=== PATIENT | female | born 1955 | race Caucasian/White ===

== ENCOUNTER 2019-06-15 16:44 | Outpatient (CLI) | payer MEDICARE | END 2019-06-15 16:45 | disposition EMS.NT | LOC: EMS 16:44 | PROVIDERS: ATTEND Surgery | DX: R55 Syncope and collapse (principal) ==

== ENCOUNTER 2019-06-15 17:50 | Outpatient (CLI) | payer MEDICARE | END 2019-06-15 17:51 | disposition short-term general hospital (02) | LOC: EMS 17:50 | PROVIDERS: ATTEND Surgery | DX: I46.9 Cardiac arrest, cause unspecified (principal) | CPT/HCPCS: A0425; A0427 ==

== ENCOUNTER 2019-07-08 13:53 | Outpatient (CLI) | payer MEDICARE | END 2019-07-08 13:54 | disposition short-term general hospital (02) | LOC: EMS 13:53 | PROVIDERS: ATTEND Surgery | DX: R42 Dizziness and giddiness (principal); I82.402 Acute embolism and thrombosis of unspecified deep veins of left lower extremity | CPT/HCPCS: A0425; A0427 ==

== ENCOUNTER 2019-07-12 14:44 | Outpatient (CLI) | payer MEDICARE, OTHER ==
--- NOTE | 2019-07-12 16:47 | XRAY Report ---
Reason: CHEST/RIB PAIN Procedure Date: 07/12/2019 Accession Number: [id number] / [id number] Procedure: XRS - Ribs 3 View BILAT CPT Code: FULL RESULT: EXAM: BILATERAL RIB RADIOGRAPHY EXAM DATE: 07/12/2019 03:17 PM. CLINICAL HISTORY: CHEST/RIB PAIN. COMPARISON: CHEST 2 VIEW 07/12/2019 3:24 PM. TECHNIQUE: 2 views. FINDINGS: Bones: There are upper chest lateral rib fractures, poorly localized on the 2 views, likely right side at least ribs 5 through 8. The CISNEROS view is also suggestive of minimally displaced fractures of at least the anterolateral third and fourth left ribs. Evaluation is limited by qualitative apparent osteopenia which may be due to technique. Lungs: No focal opacities evident. No pneumothorax or pleural effusions. Mediastinum: Heart and cardiomediastinal contours are unremarkable. Other: None. IMPRESSION: Likely bilateral rib fractures, evaluation is limited. RADIA
[2019-07-12 18:39] LABS: BASOPHILS # (AUTO) 0.1 10^3/uL (0.0-0.1); BASOPHILS % (AUTO) 1.4 %; EOSINOPHILS # (AUTO) 0.4 10^3/uL (0.0-0.7); EOSINOPHILS % (AUTO) 4.7 %; HGB - HEMOGLOBIN 11.2 g/dL (12.0-16.0); LYMPHOCYTES # (AUTO) 2.3 10^3/uL (1.5-3.5); LYMPHOCYTES % (AUTO) 28.1 %; MEAN CORPUSCULAR HEMOGLOBIN 31.9 pg (27.0-31.0); MEAN CORPUSCULAR HGB CONC 32.7 g/dL (32.0-36.0); MEAN CORPUSCULAR VOLUME 97.4 fL (81.0-99.0); MEAN PLATELET VOLUME 10.3 fL (7.9-10.8); MONOCYTES # (AUTO) 0.7 10^3/uL (0.0-1.0); NEUTROPHILS # (AUTO) 4.6 10^3/uL (1.5-6.6); NEUTROPHILS % (AUTO) 56.1 %; PLT - PLATELET COUNT 366 10^3/uL (130-450); RED BLOOD COUNT 3.51 10^6/uL (4.20-5.40); RED CELL DISTRIBUTION WIDTH 13.8 % (12.0-15.0); WHITE BLOOD COUNT 8.1 x10^3/uL (4.8-10.8)
[2019-07-12 19:00] LABS: ALBUMIN 3.5 g/dL (3.2-5.5); BILIRUBIN,TOTAL 0.7 mg/dL (0.2-1.0); CALCIUM 9.2 mg/dL (8.5-10.3); CREATININE 0.8 mg/dL (0.4-1.0); MAGNESIUM 2.1 mg/dL (1.7-2.8); TOTAL PROTEIN 6.9 g/dL (6.7-8.2)
--- NOTE | 2019-07-13 07:59 | XRAY Report ---
Reason: CHEST/RIB PAIN Procedure Date: 07/12/2019 Accession Number: [id number] / [id number] Procedure: XRS - Chest 2 View X-Ray CPT Code: 70373 FULL RESULT: EXAM: CHEST RADIOGRAPHY EXAM DATE: 07/12/2019 03:17 PM. CLINICAL HISTORY: Chest/rib pain. COMPARISON: RIBS 3 VIEW BILAT 07/12/2019 3:31 PM. TECHNIQUE: 2 views. FINDINGS: Lungs/Pleura: No focal opacities evident. No pleural effusion. No pneumothorax. Normal volumes. Mediastinum: Heart and mediastinal contours are unremarkable. Other: Bilateral oblique views of the ribs performed today suggest nondisplaced fractures of the anterior right third and fourth ribs and left anterior fifth rib.. IMPRESSION: Bilateral anterior rib fractures. No pneumothorax identified. RADIA
== END 2019-07-12 14:45 | disposition home or self-care (01) ==
LOC: DI.S 14:44
PROVIDERS: ATTEND Physician Assistant
DX: S22.43XA Multiple fractures of ribs, bilateral, initial encounter for closed fracture (principal); R07.89 Other chest pain; R05 Cough; E87.6 Hypokalemia
CPT/HCPCS: 36415; 71046; 71110; 80053; 83735; 85025

== ENCOUNTER 2019-08-06 12:22 | Outpatient (CLI) | payer MEDICARE, OTHER ==
[2019-08-06 12:49] LABS: BASOPHILS # (AUTO) 0.1 10^3/uL (0.0-0.1); BASOPHILS % (AUTO) 1.2 %; EOSINOPHILS # (AUTO) 0.2 10^3/uL (0.0-0.7); EOSINOPHILS % (AUTO) 2.2 %; HGB - HEMOGLOBIN 12.2 g/dL (12.0-16.0); LYMPHOCYTES # (AUTO) 1.5 10^3/uL (1.5-3.5); LYMPHOCYTES % (AUTO) 21.8 %; MEAN CORPUSCULAR HEMOGLOBIN 30.9 pg (27.0-31.0); MEAN CORPUSCULAR VOLUME 96.5 fL (81.0-99.0); MEAN PLATELET VOLUME 10.2 fL (7.9-10.8); MONOCYTES # (AUTO) 0.4 10^3/uL (0.0-1.0); MONOCYTES % (AUTO) 6.6 %; NEUTROPHILS # (AUTO) 4.5 10^3/uL (1.5-6.6); NEUTROPHILS % (AUTO) 67.9 %; PLT - PLATELET COUNT 344 10^3/uL (130-450); RED BLOOD COUNT 3.95 10^6/uL (4.20-5.40); RED CELL DISTRIBUTION WIDTH 13.1 % (12.0-15.0); WHITE BLOOD COUNT 6.7 x10^3/uL (4.8-10.8)
[2019-08-06 13:05] LABS: ALBUMIN 3.8 g/dL (3.2-5.5); BILIRUBIN,TOTAL 0.4 mg/dL (0.2-1.0); CALCIUM 9.1 mg/dL (8.5-10.3); CREATININE 0.6 mg/dL (0.4-1.0); MAGNESIUM 1.8 mg/dL (1.7-2.8); TOTAL PROTEIN 7.5 g/dL (6.7-8.2)
== END 2019-08-06 12:23 | disposition home or self-care (01) ==
LOC: LAB 12:22
PROVIDERS: ATTEND Physician Assistant
DX: E87.6 Hypokalemia (principal); N39.0 Urinary tract infection, site not specified; R07.89 Other chest pain; R05 Cough
CPT/HCPCS: 36415; 80053; 83735; 85025

== ENCOUNTER 2019-08-24 13:48 | Outpatient (CLI) | payer MEDICARE, OTHER ==
[2019-08-24 14:19] LABS: BASOPHILS # (AUTO) 0.1 10^3/uL (0.0-0.1); BASOPHILS % (AUTO) 1.1 %; EOSINOPHILS # (AUTO) 0.3 10^3/uL (0.0-0.7); EOSINOPHILS % (AUTO) 3.2 %; HGB - HEMOGLOBIN 12.5 g/dL (12.0-16.0); LYMPHOCYTES # (AUTO) 1.8 10^3/uL (1.5-3.5); LYMPHOCYTES % (AUTO) 22.1 %; MEAN CORPUSCULAR HGB CONC 30.9 g/dL (32.0-36.0); MEAN CORPUSCULAR VOLUME 93.7 fL (81.0-99.0); MEAN PLATELET VOLUME 10.4 fL (7.9-10.8); MONOCYTES # (AUTO) 0.6 10^3/uL (0.0-1.0); MONOCYTES % (AUTO) 7.3 %; NEUTROPHILS # (AUTO) 5.3 10^3/uL (1.5-6.6); NEUTROPHILS % (AUTO) 66.1 %; PLT - PLATELET COUNT 266 10^3/uL (130-450); RED BLOOD COUNT 4.31 10^6/uL (4.20-5.40); RED CELL DISTRIBUTION WIDTH 12.8 % (12.0-15.0); WHITE BLOOD COUNT 8.1 x10^3/uL (4.8-10.8)
[2019-08-24 14:33] LABS: ALBUMIN 3.9 g/dL (3.2-5.5); ALBUMIN/GLOBULIN RATIO 1.2 (1.0-2.2); BILIRUBIN,TOTAL 0.4 mg/dL (0.2-1.0); CREATININE 0.7 mg/dL (0.4-1.0); TOTAL PROTEIN 7.2 g/dL (6.7-8.2)
== END 2019-08-24 13:49 | disposition home or self-care (01) ==
LOC: LAB 13:48
PROVIDERS: ATTEND Physician Assistant
DX: D64.9 Anemia, unspecified (principal)
CPT/HCPCS: 36415; 80053; 85025

== ENCOUNTER 2019-09-03 10:12 | Outpatient (CLI) | payer MEDICARE, OTHER ==
[2019-09-03 10:34] LABS: BASOPHILS # (AUTO) 0.1 10^3/uL (0.0-0.1); BASOPHILS % (AUTO) 1.5 %; EOSINOPHILS # (AUTO) 0.3 10^3/uL (0.0-0.7); EOSINOPHILS % (AUTO) 4.7 %; HGB - HEMOGLOBIN 12.9 g/dL (12.0-16.0); LYMPHOCYTES # (AUTO) 2.3 10^3/uL (1.5-3.5); LYMPHOCYTES % (AUTO) 34.6 %; MEAN CORPUSCULAR HEMOGLOBIN 29.8 pg (27.0-31.0); MEAN CORPUSCULAR HGB CONC 31.9 g/dL (32.0-36.0); MEAN CORPUSCULAR VOLUME 93.5 fL (81.0-99.0); MEAN PLATELET VOLUME 10.1 fL (7.9-10.8); MONOCYTES # (AUTO) 0.5 10^3/uL (0.0-1.0); MONOCYTES % (AUTO) 7.5 %; NEUTROPHILS # (AUTO) 3.5 10^3/uL (1.5-6.6); NEUTROPHILS % (AUTO) 51.4 %; PLT - PLATELET COUNT 282 10^3/uL (130-450); RED BLOOD COUNT 4.33 10^6/uL (4.20-5.40); RED CELL DISTRIBUTION WIDTH 12.4 % (12.0-15.0); WHITE BLOOD COUNT 6.8 x10^3/uL (4.8-10.8)
[2019-09-03 11:09] LABS: ALBUMIN 4.1 g/dL (3.2-5.5); ALBUMIN/GLOBULIN RATIO 1.2 (1.0-2.2); BILIRUBIN,TOTAL 0.3 mg/dL (0.2-1.0); CALCIUM 9.1 mg/dL (8.5-10.3); CREATININE 0.7 mg/dL (0.4-1.0); TOTAL PROTEIN 7.4 g/dL (6.7-8.2)
== END 2019-09-03 10:13 | disposition home or self-care (01) ==
LOC: LAB 10:12
PROVIDERS: ATTEND Physician Assistant
DX: E87.6 Hypokalemia (principal); D64.9 Anemia, unspecified; F32.9 Major depressive disorder, single episode, unspecified; E83.42 Hypomagnesemia
CPT/HCPCS: 36415; 80053; 82306; 83735; 84443; 85025

== ENCOUNTER 2019-09-10 13:34 | Outpatient (CLI) | payer MEDICARE, OTHER ==
[2019-09-10 14:14] LABS: MAGNESIUM 2.1 mg/dL (1.7-2.8)
== END 2019-09-10 13:35 | disposition home or self-care (01) ==
LOC: LAB 13:34
PROVIDERS: ATTEND Registered Nurse
DX: E87.6 Hypokalemia (principal)
CPT/HCPCS: 36415; 83735; 84132

== ENCOUNTER 2019-09-17 15:43 | Outpatient (CLI) | payer MEDICARE, OTHER | END 2019-09-17 15:44 | disposition home or self-care (01) | LOC: LAB 15:43 | PROVIDERS: ATTEND Family Medicine | DX: E87.6 Hypokalemia (principal); R29.90 Unspecified symptoms and signs involving the nervous system; E83.42 Hypomagnesemia | CPT/HCPCS: 36415; 83735; 84132 ==

== ENCOUNTER 2019-09-21 16:17 | Outpatient (CLI) | payer MEDICARE, OTHER | END 2019-09-21 16:18 | disposition home or self-care (01) | LOC: LAB 16:17 | PROVIDERS: ATTEND Registered Nurse | DX: E87.6 Hypokalemia (principal); E83.42 Hypomagnesemia | CPT/HCPCS: 36415; 83735; 84132 ==

== ENCOUNTER 2019-09-24 16:31 | Outpatient (CLI) | payer MEDICARE, OTHER ==
[2019-09-24 17:14] LABS: MAGNESIUM 1.9 mg/dL (1.7-2.8)
== END 2019-09-24 16:32 | disposition home or self-care (01) ==
LOC: LAB 16:31
PROVIDERS: ATTEND Registered Nurse
DX: E87.6 Hypokalemia (principal); E83.42 Hypomagnesemia
CPT/HCPCS: 36415; 83735; 84132

== ENCOUNTER 2019-09-29 16:23 | Outpatient (CLI) | payer MEDICARE, OTHER ==
[2019-09-29 17:01] LABS: MAGNESIUM 1.9 mg/dL (1.7-2.8)
== END 2019-09-29 16:24 | disposition home or self-care (01) ==
LOC: LAB 16:23
PROVIDERS: ATTEND Registered Nurse
DX: E87.6 Hypokalemia (principal); E83.42 Hypomagnesemia
CPT/HCPCS: 36415; 83735; 84132

== ENCOUNTER 2019-10-11 13:56 | Outpatient (CLI) | payer MEDICARE, OTHER ==
[2019-10-11 14:39] LABS: MAGNESIUM 2.2 mg/dL (1.7-2.8)
== END 2019-10-11 13:57 | disposition home or self-care (01) ==
LOC: LAB 13:56
PROVIDERS: ATTEND Registered Nurse
DX: E87.6 Hypokalemia (principal); E83.42 Hypomagnesemia
CPT/HCPCS: 36415; 83735; 84132

== ENCOUNTER 2019-10-21 16:57 | Outpatient (CLI) | payer MEDICARE, OTHER ==
--- NOTE | 2019-10-22 08:58 | Ultrasound Report ---
Reason: LT DVT Procedure Date: 10/21/2019 Accession Number: [id number] / [id number] Procedure: US - Duplex Ext Veins Left CPT Code: Final Report FULL RESULT: EXAM: LEFT LOWER EXTREMITY VENOUS ULTRASOUND EXAM DATE: 10/21/2019 05:35 PM. CLINICAL HISTORY: LT DVT. COMPARISON: VAS LOWER EXTREMITY VENOUS LEFT 06/23/2019 11:34 AM VAS LOWER EXTREMITY VENOUS LEFT 06/23/2019 10:49 AM. TECHNIQUE: Real-time sonographic vascular imaging was performed by the lead material handler through the lower extremity utilizing both color-flow and Doppler spectral analysis. Multiple personal service representative static images were saved for review. FINDINGS: Common Femoral Vein (CFV): Normal. CFV-GSV Junction: Normal. Profunda Femoral Vein (PFV): Normal. Femoral Vein (FV) Prox: Normal. Femoral Vein (FV) Mid: Normal. Femoral Vein (FV) Dist: Normal. Popliteal Vein: Normal. Posterior Tibial Veins: Normal. Peroneal Veins: Normal. Contralateral Side CFV: Normal. Other: None. IMPRESSION: No evidence for deep venous thrombosis. 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 RADIA
== END 2019-10-21 16:58 | disposition home or self-care (01) ==
LOC: DI 16:57
PROVIDERS: ATTEND Registered Nurse
DX: I82.409 Acute embolism and thrombosis of unspecified deep veins of unspecified lower extremity (principal); E83.42 Hypomagnesemia; E87.6 Hypokalemia
CPT/HCPCS: 36415; 83735; 84132

== ENCOUNTER 2019-10-21 17:41 | Outpatient (CLI) | payer MEDICARE, OTHER ==
[2019-10-21 18:04] LABS: MAGNESIUM 1.9 mg/dL (1.7-2.8)
== END 2019-10-21 17:42 | disposition home or self-care (01) ==
LOC: LAB 17:41
PROVIDERS: ATTEND Physician Assistant Medical
DX: E83.42 Hypomagnesemia (principal); E87.6 Hypokalemia
CPT/HCPCS: 36415; 83735; 84132

== ENCOUNTER 2020-05-18 15:02 | Outpatient (CLI) | payer MEDICARE, OTHER ==
[2020-05-18 15:39] LABS: ALBUMIN 4.5 g/dL (3.2-5.5); CALCIUM 9.6 mg/dL (8.5-10.3); CREATININE 0.8 mg/dL (0.4-1.0); PHOSPHORUS 3.3 mg/dL (2.5-4.6)
== END 2020-05-18 15:03 | disposition home or self-care (01) ==
LOC: LAB 15:02
PROVIDERS: ATTEND Internal Medicine Nephrology
DX: E87.6 Hypokalemia (principal)
CPT/HCPCS: 36415; 80069; 83735

== ENCOUNTER 2020-07-25 13:50 | Outpatient (CLI) | payer MEDICARE, OTHER ==
[2020-07-25 20:34] LABS: ALBUMIN 4.3 g/dL (3.2-5.5); CALCIUM 9.3 mg/dL (8.5-10.3); CREATININE 0.9 mg/dL (0.4-1.0); MAGNESIUM 1.9 mg/dL (1.7-2.8); PHOSPHORUS 3.3 mg/dL (2.5-4.6)
== END 2020-07-25 13:51 | disposition home or self-care (01) ==
LOC: LAB.S 13:50
PROVIDERS: ATTEND Internal Medicine Nephrology
DX: E87.6 Hypokalemia (principal)
CPT/HCPCS: 36415; 80069; 83735

== ENCOUNTER 2021-01-20 13:24 | Outpatient (CLI) | payer MEDICARE, OTHER ==
--- NOTE | 2021-01-20 14:18 | XRAY Report ---
PROCEDURE: Knee 3 View LT INDICATIONS: PAIN IN LEFT KNEE TECHNIQUE: 3 views of the left knee(s) were acquired. COMPARISON: None. FINDINGS: Bones: No fractures or dislocations. No suspicious bony lesions. Soft tissues: Small knee joint effusion. No suspicious soft tissue calcifications. IMPRESSION: No acute bony abnormality. Small knee joint effusion. Reviewed by: Marck Corey on 01/20/2021 1:16 PM [facility] Approved by: Marck Corey on 01/20/2021 1:16 PM [facility] Station ID: [id number]
[2021-01-20 17:59] LABS: CALCIUM 9.7 mg/dL (8.5-10.3); CREATININE 0.9 mg/dL (0.4-1.0); POTASSIUM 4.2 mmol/L (3.5-5.0)
== END 2021-01-20 13:25 | disposition home or self-care (01) ==
LOC: DI.S 13:24
PROVIDERS: ATTEND Registered Nurse
DX: M25.562 Pain in left knee (principal); M25.462 Effusion, left knee; E87.6 Hypokalemia
CPT/HCPCS: 36415; 80048

== ENCOUNTER 2021-10-25 14:02 | Outpatient (CLI) | payer MEDICARE, OTHER | END 2021-10-25 14:03 | disposition critical access hospital (66) | LOC: EMS 14:02 | DX: R41.82 Altered mental status, unspecified (principal) | CPT/HCPCS: A0425; A0429 ==

== ENCOUNTER 2021-10-25 14:21 | Emergency (ER) | payer MEDICARE, OTHER ==
[2021-10-25] MEDS ORDERED: THIAMINE INJ 100 MG, MAGNESIUM SULFATE 2 GM, MULTIVITAMIN 10 ML, FOLIC ACID INJ 1 MG in... IV ONE ×5 (14:28)
[2021-10-25 14:41] LABS: BASOPHILS # (AUTO) 0.1 10^3/uL (0.0-0.1); BASOPHILS % (AUTO) 1.2 %; EOSINOPHILS # (AUTO) 0.2 10^3/uL (0.0-0.7); EOSINOPHILS % (AUTO) 1.9 %; HCT - HEMATOCRIT 45.7 % (37.0-47.0); LYMPHOCYTES # (AUTO) 3.1 10^3/uL (1.5-3.5); LYMPHOCYTES % (AUTO) 32.3 %; MEAN CORPUSCULAR HEMOGLOBIN 27.4 pg (27.0-31.0); MEAN CORPUSCULAR HGB CONC 32.8 g/dL (32.0-36.0); MEAN CORPUSCULAR VOLUME 83.5 fL (81.0-99.0); MEAN PLATELET VOLUME 9.4 fL (7.9-10.8); MONOCYTES # (AUTO) 0.5 10^3/uL (0.0-1.0); MONOCYTES % (AUTO) 5.3 %; NEUTROPHILS # (AUTO) 5.6 10^3/uL (1.5-6.6); NEUTROPHILS % (AUTO) 58.9 %; PLT - PLATELET COUNT 241 10^3/uL (130-450); RED BLOOD COUNT 5.47 10^6/uL (4.20-5.40); RED CELL DISTRIBUTION WIDTH 14.9 % (12.0-15.0); WHITE BLOOD COUNT 9.6 x10^3/uL (4.8-10.8)
--- NOTE | 2021-10-25 14:42 | ED Physician Documentation ---
History of Present Illness - Stated complaint Stated Complaint: AMS/ETOH - Chief complaint Chief Complaint: General - History obtained from History obtained from: Patient, EMS - History of Present Illness Timing: Today Pain level max: 0 Pain level now: 0 - Additonal information Additional information: Patient is a 66-year-old female brought in by ambulance today. EMS states that she lives in [place], but for some reason is staying at a hotel up in [place]. EMS reports that her daughter is in correction but has been reporting that her mother has been binge drinking more than usual. Patient has a longstanding history of alcoholism. No known trauma. Nothing makes it better or worse. EMS states that the patient was confused at home. Slow to respond to questioning. Has a prosthetic left eye. Patient does not know why she has a prosthetic left eye. Patient does not know any of her medical history. She does not know if she takes any medications or not. 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 - Present Medications Home Medications: Ambulatory Orders Medication Instructions Recorded Confirmed Alprazolam [Alprazolam Odt] 0.5 mg PO 10/21/13 10/21/13 oxyCODONE [Roxicodone] 5 mg PO Q4-6H PRN #14 tablet 10/21/13 HYDROcod/ACETAM 5/325 [Vicodin 1 - 2 ea PO Q6H PRN 10/26/13 10/26/13 5/325] Morphine Sulfate [Ms Contin] 60 mg PO 10/26/13 10/26/13 - Allergies Allergies/Adverse Reactions: Allergies Allergy/AdvReac Type Severity Reaction Status Date / Time No Known Drug Allergies Allergy Verified 11/04/15 19:31 - Social History Does the pt smoke?: No Smoking Status: Never smoker Does the pt drink ETOH?: Yes Does the pt have substance abuse?: No - Immunizations Immunizations are current?: Yes PD ED PE NORMAL - Vitals Vital signs reviewed: Yes - General General: No acute distress, Other (alert, oriented to person, place, but not to time. appears intoxicated. ) - HEENT HEENT: Atraumatic, Ears normal, Moist mucous membranes, Pharynx benign, Other (prosthetic L eye) - Neck Neck: Supple, no meningeal sign, No bony TTP - Cardiac Cardiac: RRR, Strong equal pulses - Respiratory Respiratory: No respiratory distress, Clear bilaterally - Abdomen Abdomen: Soft, Non tender, Non distended - Derm Derm: Warm and dry - Extremities Extremities: No edema - Neuro Neuro: Alert and oriented X 3 Results - Vitals Vitals: Vital Signs - 24 hr 10/25/21 10/25/21 14:22 19:50 Temperature 36.2 C L 36.9 C Heart Rate 83 87 Respiratory 18 16 Rate Blood Pressure 138/86 H 144/75 H O2 Saturation 98 96 Oxygen O2 Source Room air - EKG (time done) 1432 Rate: Rate (enter#) (82) Rhythm: NSR [place]: Normal Intervals: Normal DC QRS: LVH Ischemia: Normal ST segments - Labs Labs: Laboratory Tests 10/25/21 10/25/21 10/25/21 14:35 14:35 14:35 WBC 9.6 RBC 5.47 H Hgb 15.0 Hct 45.7 MCV 83.5 MCH 27.4 MCHC 32.8 RDW 14.9 Plt Count 241 MPV 9.4 Neut # (Auto) 5.6 Lymph # (Auto) 3.1 Rice # (Auto) 0.5 Eos # (Auto) 0.2 Baso # (Auto) 0.1 Absolute Nucleated RBC 0.00 Nucleated RBC % 0.0 Sodium 137 Potassium 4.4 Chloride 100 L Carbon Dioxide 26 Anion Gap 11.0 BUN 20 Creatinine 0.7 Estimated GFR (MDRD) 83 L Glucose 89 Calcium 9.0 Total Bilirubin 1.0 AST 117 H ALT 32 Alkaline Phosphatase 94 Total Protein 8.2 Albumin 4.5 Globulin 3.7 Albumin/Globulin Ratio 1.2 Lipase 27 TSH 1.06 Urine Color Urine Clarity Urine pH Ur Specific [place] Urine Protein Urine Glucose (UA) Urine Ketones Urine Occult Blood Urine Nitrite Urine Bilirubin Urine Urobilinogen Ur Leukocyte Esterase Ur Microscopic Review Urine Culture Comments Salicylates < 6.0 Urine Opiates Screen Ur Oxycodone Screen Urine Methadone Screen Ur Propoxyphene Screen Acetaminophen < 10 L Ur Barbiturates Screen Ur Tricyclics Screen Ur Phencyclidine Scrn Ur Amphetamine Screen U Methamphetamines Scrn U Benzodiazepines Scrn Urine Cocaine Screen U Cannabinoids Screen Ethyl Alcohol 254.4 10/25/21 14:43 WBC RBC Hgb Hct MCV MCH MCHC RDW Plt Count MPV Neut # (Auto) Lymph # (Auto) Rice # (Auto) Eos # (Auto) Baso # (Auto) Absolute Nucleated RBC Nucleated RBC % Sodium Potassium Chloride Carbon Dioxide Anion Gap BUN Creatinine Estimated GFR (MDRD) Glucose Calcium Total Bilirubin AST ALT Alkaline Phosphatase Total Protein Albumin Globulin Albumin/Globulin Ratio Lipase TSH Urine Color STRAW Urine Clarity CLEAR Urine pH 5.5 Ur Specific [place] 1.010 Urine Protein NEGATIVE Urine Glucose (UA) NEGATIVE Urine Ketones NEGATIVE Urine Occult Blood TRACE-INTA Urine Nitrite NEGATIVE Urine Bilirubin NEGATIVE Urine Urobilinogen 0.2 (NORMAL) Ur Leukocyte Esterase NEGATIVE Ur Microscopic Review NOT INDICATED Urine Culture Comments NOT INDICATED Salicylates Urine Opiates Screen NEGATIVE Ur Oxycodone Screen POSITIVE H Urine Methadone Screen NEGATIVE Ur Propoxyphene Screen NEGATIVE Acetaminophen Ur Barbiturates Screen NEGATIVE Ur Tricyclics Screen NEGATIVE Ur Phencyclidine Scrn NEGATIVE Ur Amphetamine Screen NEGATIVE U Methamphetamines Scrn NEGATIVE U Benzodiazepines Scrn NEGATIVE Urine Cocaine Screen NEGATIVE U Cannabinoids Screen NEGATIVE Ethyl Alcohol - Rads (name of study) Head CT Radiology: Final report received, EMP read contemporaneously, See rad report (No acute intracranial abnormality) PD MEDICAL DECISION MAKING - ED course Complexity details: reviewed results, re-evaluated patient, considered differential, d/w patient ED course: 66-year-old female presents to the emergency department with alcohol intoxication and oxycodone abuse. This is an ongoing issue for the patient. She refuses detox or rehab. She eventually cleared to her normal mentation as the alcohol and opiates cleared from her system. is comfortable taking her home at this time. Patient and family counseled regarding signs and symptoms for which I believe and urgent re-evaluation would be necessary. Patient with good understanding of and agreement to plan and is comfortable going home at this time This document was made in part using voice recognition software. While efforts are made to proofread this document, sound alike and grammatical errors may occur. Departure - Departure Disposition: 01 Home, Self Care Clinical Impression: Opiate abuse, episodic Alcohol intoxication Qualifiers: Complication of substance-induced condition: uncomplicated Qualified Code(s): F10.920 - Alcohol use, unspecified with intoxication, uncomplicated Condition: Good Instructions: ED Alcohol Intoxication, ED Narcotic Abuse Follow-Up: Rosa M Cabrera ARNP [Primary Care Provider] - Within 1 week Comments: Please follow-up with your doctor for further care. You need to stop using alcohol and narcotics. Return if you worsen Discharge Date/Time: 10/25/21 19:55
[2021-10-25 14:49] LABS: MUDS CUTOFF CONCENTRATIONS CUTOFF CONC BELOW:
[2021-10-25 14:57] LABS: ACETAMINOPHEN < 10 ug/mL (10-30); ALBUMIN 4.5 g/dL (3.2-5.5); ALBUMIN/GLOBULIN RATIO 1.2 (1.0-2.2); ALKALINE PHOSPHATASE 94 IU/L (42-121); ALT ALANINE AMINOTRANSFERASE 32 IU/L (10-60); AST ASPARTATE AMINOTRANSFERASE 117 IU/L (10-42); BUN - BLOOD UREA NITROGEN 20 mg/dL (6-20); CARBON DIOXIDE - CO2 26 mmol/L (21-32); CHLORIDE 100 mmol/L (101-111); CREATININE 0.7 mg/dL (0.4-1.0); ETOH - ETHANOL 254.4 mg/dL; GFR - MDRD 83 (>89); GLUCOSE 89 mg/dL (70-100); LIPASE 27 U/L (22-51); POTASSIUM 4.4 mmol/L (3.5-5.0); SALICYLATE < 6.0 mg/dL; SODIUM 137 mmol/L (135-145); TOTAL PROTEIN 8.2 g/dL (6.7-8.2)
[2021-10-25 14:58] LABS: BILIRUBIN,URINE NEGATIVE (NEGATIVE); GLUCOSE, URINE (UA) NEGATIVE (NEGATIVE); KETONES,URINE (UA) NEGATIVE (NEGATIVE); LEUKOCYTE ESTERASE, URINE NEGATIVE (NEGATIVE); NITRITE,URINE NEGATIVE (NEGATIVE); OCCULT BLOOD,URINE TRACE-INTA (NEGATIVE); PH,URINE 5.5 PH (5.0-7.5); PROTEIN,URINE NEGATIVE (NEGATIVE); UROBILINOGEN,URINE 0.2 (NORMAL) E.U./dL (NORMAL)
[2021-10-25 15:00] LABS: CLARITY,URINE CLEAR (CLEAR)
[2021-10-25 15:15] LABS: AMPHETAMINE SCREEN,URINE NEGATIVE (NEGATIVE); BARBITURATE SCREEN,UR NEGATIVE (NEGATIVE); BENZODIAZEPINES SCREEN, URINE NEGATIVE (NEGATIVE); COCAINE SCREEN URINE NEGATIVE (NEGATIVE); METHADONE SCREEN, URINE NEGATIVE (NEGATIVE); METHAMPHETAMINES SCREEN, URINE NEGATIVE (NEGATIVE); OPIATE SCREEN, URINE NEGATIVE (NEGATIVE); OXYCODONE SCREEN, URINE POSITIVE (NEGATIVE); PROPOXYPHENE SCREEN, URINE NEGATIVE (NEGATIVE); THC CANNABINOID SCREEN, URINE NEGATIVE (NEGATIVE); TRICYCLIC ANTIDEPRESSANT,URINE NEGATIVE (NEGATIVE)
--- NOTE | 2021-10-25 15:45 | CT Report ---
PROCEDURE: HEAD WO INDICATIONS: altered mental status TECHNIQUE: Noncontrast 4.5 mm thick angled axial sections acquired from the foramen magnum to the vertex. For r adiation dose reduction, the following was used: automated exposure control, adjustment of mA and/or kV according to patient size. COMPARISON: None. FINDINGS: Image quality: Excellent. CSF spaces: Basal cisterns are patent. No extra-axial fluid collections. Ventricles are normal in size and shape. Brain: No midline shift. No intracranial masses or hemorrhage. Reich-white matter interface is norm al. Skull and face: Calvarium and visualized facial bones are intact, without suspicious lesions. Left prosthetic versus calcified globe. Sinuses: Visualized sinuses and mastoids are clear. IMPRESSION: 1. No acute intracranial process. Reviewed by: Anastasia De La Vega MD on 10/25/2021 3:44 PM PST Approved by: Anastasia De La Vega MD on 10/25/2021 3:44 PM PST Station ID: [id number]
[2021-10-25 20:00] VITALS: BP 144/75
== END 2021-10-25 19:55 | disposition home or self-care (01) ==
LOC: EDUNIT# → ED 14:21
DX: F11.10 Opioid abuse, uncomplicated (principal); I10 Essential (primary) hypertension
CPT/HCPCS: 36415; 70450; 80053; 80306; 80307; 81003; 83690; 84443; 85025; 93005; 96365; 96366; 99283; 99284; G0480; J3411; 80320; 80329; 81001; 87086

== ENCOUNTER 2022-08-28 12:27 | Outpatient (CLI) | payer MEDICARE, OTHER ==
--- NOTE | 2022-08-28 14:33 | XRAY Report ---
PROCEDURE: Lumbar Spine 2 View INDICATIONS: Low back pain TECHNIQUE: 3 views of the lumbar spine were acquired. COMPARISON: None. FINDINGS: Vertebra plana wedge compression deformity at L1 which is presumably remote although an acute compone nt cannot be excluded. Acute or subacute wedge compression deformity at L4 with approximately 10% height loss. No suspicious lytic or blastic osseous lesion identified. Moderate to severe degenerative changes in the lower lumbar spine. IMPRESSION: Acute appearing L4 compression fracture. Vertebral plana at L1 which is favored to be remote given the advanced height loss, although an acute component cannot be excluded. Please note exam limited by body habitus. Consider CT for further evaluation. Reviewed by: Matteo Mendes MD on 08/28/2022 2:32 PM PST Approved by: Matteo Mendes MD on 08/28/2022 2:32 PM PST Station ID: [id number]
--- NOTE | 2022-08-28 14:35 | XRAY Report ---
PROCEDURE: Thoracic Spine 2 View INDICATIONS: LOW BACK PAIN TECHNIQUE: 2 views of the thoracic spine were acquired. COMPARISON: None. FINDINGS: Age-indeterminate T9 anterior wedge compression deformity. Vertebral plana at L1 is redemonstrated. O therwise normal vertebral body height and alignment. No suspicious lytic or blastic osseous lesion. IMPRESSION: Age indeterminate T9 anterior wedge compression deformity, moderate in severity. Correlate for any po int tenderness to assess for acuity. Vertebral plana at L1 is presumably chronic although acute component will need clinical exclusion. Reviewed by: Matteo Mendes MD on 08/28/2022 2:34 PM PST Approved by: Matteo Mendes MD on 08/28/2022 2:34 PM PST Station ID: [id number]
== END 2022-08-28 12:28 | disposition home or self-care (01) ==
LOC: DI.S 12:27
PROVIDERS: ATTEND Registered Nurse
DX: S32.040A Wedge compression fracture of fourth lumbar vertebra, initial encounter for closed fracture (principal); S22.070A Wedge compression fracture of T9-T10 vertebra, initial encounter for closed fracture

== ENCOUNTER 2022-08-31 14:18 | Emergency (ER) | payer MEDICARE, OTHER ==
--- OUTSIDE RECORDS SUMMARY | 2022-08-31 14:28 | EXTERNAL MEDICAL SUMMARY RPT | Continuity of Care Document ---
:1955 Author Organization [facility] Address [address] [place] [address] Phone Allergies No information. Encounters No information. Functional Status No information. Immunizations No information. Medications No information. Problems No information. Procedures date description facility +0000 Visit Code [facility] [place] Results/Labs No information. Social History No information. Vital Signs date measurement value units [id number] BP_diastolic BP_diastolic 87 mm[H g] [id number]+0000 BP_systolic BP_systolic 162 mm[Hg] 97116523912410+0000 heart_rate heart_rate 131 /min [id number]+0000 height_metric height_metric 153.67 cm [id number]+0000 height_standard height_standard 60.5 in [id number]+0000 respiration_rate respiration_rate 16 /min [id number]+0000 temperature_metric temperature_metric 36.44 C [id number]+0000 temperature_standard temperature_standard 9 7.6 F
[2022-08-31 14:33] VITALS: BP 176/92
[2022-08-31] MEDS ORDERED: KETOROLAC 60 MG/2 ML VIAL IM STA (14:53)
--- NOTE | 2022-08-31 14:59 | ED Physician Documentation ---
PD HPI BACK PAIN - Stated complaint Stated Complaint: BACK PX - Chief complaint Chief Complaint: Back Pain - History obtained from History obtained from: Patient - Additional information Additional information: She had a slip and fall at night about a week ago, she injured her back with severe pain. Was subsequently seen in the clinic and had x-rays done 3 days ago demonstrating a T9 compression fracture and a L4 compression fracture. Her primary care physician would not prescribe pain medication with the exception of calcitonin due to a history of alcoholism. She is here for pain management. 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 - Present Medications Home Medications: Ambulatory Orders Medication Instructions Recorded Confirmed Alprazolam [Alprazolam Odt] 0.5 mg PO 10/21/13 10/21/13 oxyCODONE [Roxicodone] 5 mg PO Q4-6H PRN #14 tablet 10/21/13 HYDROcod/ACETAM 5/325 [Vicodin 1 - 2 ea PO Q6H PRN 10/26/13 10/26/13 5/325] Morphine Sulfate [Ms Contin] 60 mg PO 10/26/13 10/26/13 Lidocaine Patch 5% [Lidoderm Patch] 1 patch TOP DAILY PRN #14 patch 08/31/22 Oxycodone HCl 10 mg PO Q6H PRN #20 tablet 08/31/22 - Allergies Allergies/Adverse Reactions: Allergies Allergy/AdvReac Type Severity Reaction Status Date / Time No Known Drug Allergies Allergy Verified 11/04/15 19:31 - Social History Does the pt smoke?: No Smoking Status: Never smoker Does the pt drink ETOH?: Yes Does the pt have substance abuse?: No - Immunizations Immunizations are current?: Yes - POLST Patient has POLST: No PD ED PE NORMAL - Vitals Vital signs reviewed: Yes - General General: Alert and oriented X 3, No acute distress - HEENT HEENT: Other (Her left eye is a prosthetic, right eye extraocular movements are normal without nystagmus) - Back Back: Other (Tenderness in the low thoracic and lower lumbar spine) - Derm Derm: Normal color, Warm and dry - Extremities Extremities: Other (The patient has equal and normal Achilles and patellar reflexes bilaterally. Normal sensation in all areas of the legs. Patient denies saddle anesthesia. Normal strength in flexion-extension at the ankles, knees, and flexion of the hips.) - Neuro Neuro: Alert and oriented X 3, Normal speech Results - Vitals Vitals: Vital Signs - 24 hr 08/31/22 14:30 Temperature 37.0 C Heart Rate 104 H Respiratory 18 Rate Blood Pressure 176/92 H O2 Saturation 100 Oxygen O2 Source Room air PD MEDICAL DECISION MAKING - ED course ED course: 67-year-old woman with known compression fractures that are recent of the thoracic and lumbar spine presents for pain management and inadequate pain relief at home. This is complicated by history of alcoholism. Given the circumstances, with the patient's permission, I enlisted the daughter who I spoke with by phone who is willing to fruit or nut picker the medications and hold them and monitor for alcohol use. Given the above, the patient is also given a Narcan prepack to go home with. She is given 60 mg of IM Toradol here. Departure - Departure Disposition: Home, Self Care Clinical Impression: Lumbar compression fracture Qualifiers: Encounter type: initial encounter Lumbar vertebra fracture level: unspecified lumbar vertebra Qualified Code(s): S32.000A - Wedge compression fracture of unspecified lumbar vertebra, initial encounter for closed fracture Thoracic compression fracture Qualifiers: Encounter type: initial encounter Thoracic vertebra fracture level: unspecified thoracic vertebra Qualified Code(s): S22.000A - Wedge compression fracture of unspecified thoracic vertebra, initial encounter for closed fracture Condition: Good Record reviewed to determine appropriate education?: Yes Instructions: ED Fx Comp Vertebral Prescriptions: Lidocaine Patch 5% [Lidoderm Patch] 1 patch TOP DAILY PRN #14 patch PRN Reason: pain Oxycodone HCl 10 mg PO Q6H PRN #20 tablet PRN Reason: Pain Comments: I sent your prescription electronically to [facility] in [place]. I spoke with your daughter who will fruit or nut picker the medications and monitor you a bit to make sure that you are not using them with alcohol. Call your doctor to arrange a follow-up appointment, make the next available appointment. In the interim, return anytime if worse or if new symptoms develop. I am prescribing a short course of narcotic pain medication for you. These are potentially dangerous and addictive medications that should be used carefully. These medications may constipate you. Take an rdcg-ghj-fcaqidq stool softener (docusate) twice daily with plenty of water while taking these medications. If you go 24 hours without a bowel movement, take sina-bnu-swogorv miralax, per package instructions. Do not drink or drive while taking these medications. If you received narcotic or sedating medications while in the emergency department, do not drive for 24 hours. Store this medication in a safe, secure place and out of reach of children. It is a violation of federal law to give or sell this medication to another person or to use in a manner other than prescribed. The ED will not refill narcotic prescriptions, including prescriptions lost or stolen. To dispose of unwanted medications: 1. [facility] at [address] in [place] has a medication drop box. They accept prescription medications (in pill form) Friday through Friday 9:00 a.m. to 5:00 p.m. 2. [facility] [employer] accepts prescription medications (in pill form only) for disposal year round. Call for more information. 3. Contact the [facility] for the next [facility] sponsored prescription drug collection event. , [phone], or [phone]; Note that many narcotic pain relievers also contain Tylenol/acetaminophen. Please ensure that your total dose of acetaminophen from all sources does not exceed 3 g (3000 mg) per day.
[2022-08-31] MEDS ORDERED: NALOXONE HCL NASAL SPRAY KIT NAS STA (15:03)
== END 2022-08-31 15:38 | disposition home or self-care (01) ==
LOC: ED 14:18
DX: S32.040A Wedge compression fracture of fourth lumbar vertebra, initial encounter for closed fracture (principal); S22.070A Wedge compression fracture of T9-T10 vertebra, initial encounter for closed fracture; W19.XXXA Unspecified fall, initial encounter; F10.20 Alcohol dependence, uncomplicated
CPT/HCPCS: 96372; 99282; 99283; G2215

== ENCOUNTER 2022-12-16 14:45 | Outpatient (CLI) | payer MEDICARE, OTHER | END 2022-12-16 14:46 | disposition critical access hospital (66) | LOC: EMS 14:45 | DX: R41.0 Disorientation, unspecified (principal); H55.00 Unspecified nystagmus; Z72.89 Other problems related to lifestyle | CPT/HCPCS: A0425; A0429 ==

== ENCOUNTER 2022-12-16 15:14 | Emergency (ER) | payer MEDICARE, OTHER ==
[2022-12-16 15:55] LABS: BASOPHILS # (AUTO) 0.1 10^3/uL (0.0-0.1); BASOPHILS % (AUTO) 1.3 %; EOSINOPHILS # (AUTO) 0.2 10^3/uL (0.0-0.7); EOSINOPHILS % (AUTO) 2.7 %; HCT - HEMATOCRIT 42.7 % (37.0-47.0); HGB - HEMOGLOBIN 13.4 g/dL (12.0-16.0); LYMPHOCYTES # (AUTO) 2.5 10^3/uL (1.5-3.5); LYMPHOCYTES % (AUTO) 40.4 %; MEAN CORPUSCULAR HEMOGLOBIN 26.6 pg (27.0-31.0); MEAN CORPUSCULAR HGB CONC 31.4 g/dL (32.0-36.0); MEAN CORPUSCULAR VOLUME 84.9 fL (81.0-99.0); MEAN PLATELET VOLUME 9.4 fL (7.9-10.8); MONOCYTES # (AUTO) 0.3 10^3/uL (0.0-1.0); NEUTROPHILS # (AUTO) 3.2 10^3/uL (1.5-6.6); NEUTROPHILS % (AUTO) 50.3 %; PLT - PLATELET COUNT 225 10^3/uL (130-450); RED BLOOD COUNT 5.03 10^6/uL (4.20-5.40); WHITE BLOOD COUNT 6.3 x10^3/uL (4.8-10.8)
[2022-12-16 16:06] LABS: ACETAMINOPHEN < 10 ug/mL (10-30); ALBUMIN 3.9 g/dL (3.2-5.5); ALBUMIN/GLOBULIN RATIO 1.3 (1.0-2.2); ALKALINE PHOSPHATASE 81 IU/L (42-121); ALT ALANINE AMINOTRANSFERASE 19 IU/L (10-60); AST ASPARTATE AMINOTRANSFERASE 22 IU/L (10-42); BILIRUBIN,TOTAL 0.3 mg/dL (0.2-1.0); BUN - BLOOD UREA NITROGEN 10 mg/dL (6-20); CALCIUM 8.9 mg/dL (8.5-10.3); CARBON DIOXIDE - CO2 25 mmol/L (21-32); CHLORIDE 105 mmol/L (101-111); CREATININE 0.8 mg/dL (0.4-1.0); ETOH - ETHANOL 146.4 mg/dL; GFR - MDRD 71 (>89); GLUCOSE 100 mg/dL (70-100); LIPASE 42 U/L (22-51); POTASSIUM 4.5 mmol/L (3.5-5.0); SALICYLATE < 6.0 mg/dL; SODIUM 138 mmol/L (135-145)
[2022-12-16 16:33] LABS: MUDS CUTOFF CONCENTRATIONS CUTOFF CONC BELOW:
[2022-12-16 16:47] LABS: BILIRUBIN,URINE NEGATIVE (NEGATIVE); GLUCOSE, URINE (UA) NEGATIVE (NEGATIVE); KETONES,URINE (UA) NEGATIVE (NEGATIVE); LEUKOCYTE ESTERASE, URINE NEGATIVE (NEGATIVE); NITRITE,URINE NEGATIVE (NEGATIVE); OCCULT BLOOD,URINE TRACE-INTA (NEGATIVE); PH,URINE 5.5 PH (5.0-7.5); PROTEIN,URINE NEGATIVE (NEGATIVE); UROBILINOGEN,URINE 0.2 (NORMAL) E.U./dL (NORMAL)
[2022-12-16 16:49] LABS: CLARITY,URINE CLEAR (CLEAR)
[2022-12-16 16:58] LABS: THC CANNABINOID SCREEN, URINE NEGATIVE (NEGATIVE)
[2022-12-16 16:59] LABS: AMPHETAMINE SCREEN,URINE NEGATIVE (NEGATIVE); BARBITURATE SCREEN,UR NEGATIVE (NEGATIVE); BENZODIAZEPINES SCREEN, URINE NEGATIVE (NEGATIVE); COCAINE SCREEN URINE NEGATIVE (NEGATIVE); METHADONE SCREEN, URINE NEGATIVE (NEGATIVE); METHAMPHETAMINES SCREEN, URINE NEGATIVE (NEGATIVE); OPIATE SCREEN, URINE NEGATIVE (NEGATIVE); OXYCODONE SCREEN, URINE POSITIVE (NEGATIVE); PROPOXYPHENE SCREEN, URINE NEGATIVE (NEGATIVE); TRICYCLIC ANTIDEPRESSANT,URINE NEGATIVE (NEGATIVE)
--- NOTE | 2022-12-16 17:14 | CT Report ---
PROCEDURE: HEAD WO INDICATIONS: ETOH/?head injury TECHNIQUE: Noncontrast 4.5 mm thick angled axial sections acquired from the foramen magnum to the vertex. For r adiation dose reduction, the following was used: automated exposure control, adjustment of mA and/or kV according to patient size. COMPARISON: 10/25/2021 FINDINGS: Image quality: Excellent. CSF spaces: Basal cisterns are patent. No extra-axial fluid collections. Ventricles are normal in size and shape. Brain: No midline shift. No intracranial masses or hemorrhage. Reich-white matter interface is norm al. Skull and face: Calvarium and visualized facial bones are intact, without suspicious lesions. There is an abnormal left globe, with an apparent prosthesis present. Sinuses: Visualized sinuses and mastoids are clear. IMPRESSION: No intracranial hemorrhage is seen. No significant intracranial abnormality is seen. 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 Reviewed by: Avila Dickson MD on 12/16/2022 4:12 PM [facility] Approved by: Avila Dickson MD on 12/16/2022 4:12 PM [facility] Station ID: [id number]
--- NOTE | 2022-12-16 17:28 | ED Physician Documentation ---
History of Present Illness - Stated complaint Stated Complaint: ALOC/ETOH - Chief complaint Chief Complaint: Neuro - History obtained from History obtained from: Patient, EMS - Additonal information Additional information: Patient is a 67-year-old female presenting for evaluation of alcohol intoxication. Patient reports having 3 shots today. EMS reports that family members called because they were concerned when she was nonresponsive for a brief period of time. They found her in the bathroom leaning over the kitchen sink and she was not responding to them. Patient states that because she was ignoring them. She denies recent falls or hitting her head.She states that she has been medicating herself with alcohol due to chronic back pain. When she takes her pain medication she feels okay but when she does not have it she drinks. She denies feeling suicidal or homicidal.She does not currently feel that she needs help for her alcohol or substance abuse. Review of Systems Constitutional: denies: Fever Cardiac: denies: Chest pain / pressure Respiratory: denies: Dyspnea GI: denies: Abdominal Pain : denies: Dysuria Musculoskeletal: reports: Back pain Neurologic: denies: Headache PD PAST MEDICAL HISTORY - Past Medical History Cardiovascular: Hypertension Respiratory: Asthma Endocrine/Autoimmune: None GI: None COMPLEX DIRECTOR: None : None HEENT: Other Psych: Anxiety Musculoskeletal: None Derm: None - Past Surgical History Past Surgical History: Yes General: Colonoscopy /COMPLEX DIRECTOR: section - Present Medications Home Medications: Ambulatory Orders Medication Instructions Recorded Confirmed Alprazolam [Alprazolam Odt] 0.5 mg PO 10/21/13 10/21/13 oxyCODONE [Roxicodone] 5 mg PO Q4-6H PRN #14 tablet 10/21/13 HYDROcod/ACETAM 5/325 [Vicodin 1 - 2 ea PO Q6H PRN 10/26/13 10/26/13 5/325] Morphine Sulfate [Ms Contin] 60 mg PO 10/26/13 10/26/13 Lidocaine Patch 5% [Lidoderm Patch] 1 patch TOP DAILY PRN #14 patch 08/31/22 Oxycodone HCl 10 mg PO Q6H PRN #20 tablet 08/31/22 - Allergies Allergies/Adverse Reactions: Allergies Allergy/AdvReac Type Severity Reaction Status Date / Time No Known Drug Allergies Allergy Verified 11/04/15 19:31 - Social History Does the pt smoke?: No Smoking Status: Never smoker Does the pt drink ETOH?: Yes Does the pt have substance abuse?: No - Immunizations Immunizations are current?: Yes - POLST Patient has POLST: No PD ED PE NORMAL - General General: Alert and oriented X 3, No acute distress, Well developed/nourished - HEENT HEENT: Atraumatic, Other (Prosthetic left eye, 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 and reactive to light with extraocular movements intact) - Neck Neck: Supple, no meningeal sign - Cardiac Cardiac: RRR - Respiratory Respiratory: No respiratory distress, Clear bilaterally - Abdomen Abdomen: Soft, Non tender, Non distended - Back Back: No spinal TTP - Derm Derm: Warm and dry - Extremities Extremities: No edema - Neuro Neuro: Alert and oriented X 3, head grinder 2-12 intact (Other than limitations with L eye exam given It is a prosthesis.), No motor deficit, Other (Slurred speech) Results - Vitals Vitals: Vital Signs - 24 hr 12/16/22 12/16/22 12/16/22 15:36 15:56 16:28 Temperature 36.7 C Heart Rate 85 90 91 Respiratory 20 18 20 Rate Blood Pressure 103/71 129/75 119/75 O2 Saturation 100 95 100 12/16/22 12/16/22 17:23 17:43 Temperature Heart Rate 82 93 Respiratory 18 18 Rate Blood Pressure 117/58 L 112/56 L O2 Saturation 100 97 Oxygen O2 Source Room air - Labs Labs: Laboratory Tests 12/16/22 12/16/22 12/16/22 15:43 15:43 15:43 WBC 6.3 RBC 5.03 Hgb 13.4 Hct 42.7 MCV 84.9 MCH 26.6 L MCHC 31.4 L RDW 15.0 Plt Count 225 MPV 9.4 Neut # (Auto) 3.2 Lymph # (Auto) 2.5 [place] # (Auto) 0.3 Eos # (Auto) 0.2 Baso # (Auto) 0.1 Absolute Nucleated RBC 0.00 Nucleated RBC % 0.0 Sodium 138 Potassium 4.5 Chloride 105 Carbon Dioxide 25 Anion Gap 8.0 BUN 10 Creatinine 0.8 Estimated GFR (MDRD) 71 L Glucose 100 Calcium 8.9 Total Bilirubin 0.3 AST 22 ALT 19 Alkaline Phosphatase 81 Total Protein 7.0 Albumin 3.9 Globulin 3.1 Albumin/Globulin Ratio 1.3 Lipase 42 TSH 1.46 Urine Color Urine Clarity Urine pH Ur Specific [place] Urine Protein Urine Glucose (UA) Urine Ketones Urine Occult Blood Urine Nitrite Urine Bilirubin Urine Urobilinogen Ur Leukocyte Esterase Ur Microscopic Review Urine Culture Comments Salicylates < 6.0 Urine Opiates Screen Ur Oxycodone Screen Urine Methadone Screen Ur Propoxyphene Screen Acetaminophen < 10 L Ur Barbiturates Screen Ur Tricyclics Screen Ur Phencyclidine Scrn Ur Amphetamine Screen U Methamphetamines Scrn U Benzodiazepines Scrn Urine Cocaine Screen U Cannabinoids Screen Ethyl Alcohol 146.4 12/16/22 16:25 WBC RBC Hgb Hct MCV MCH MCHC RDW Plt Count MPV Neut # (Auto) Lymph # (Auto) [place] # (Auto) Eos # (Auto) Baso # (Auto) Absolute Nucleated RBC Nucleated RBC % Sodium Potassium Chloride Carbon Dioxide Anion Gap BUN Creatinine Estimated GFR (MDRD) Glucose Calcium Total Bilirubin AST ALT Alkaline Phosphatase Total Protein Albumin Globulin Albumin/Globulin Ratio Lipase TSH Urine Color YELLOW Urine Clarity CLEAR Urine pH 5.5 Ur Specific [place] <=1.005 Urine Protein NEGATIVE Urine Glucose (UA) NEGATIVE Urine Ketones NEGATIVE Urine Occult Blood TRACE-INTA Urine Nitrite NEGATIVE Urine Bilirubin NEGATIVE Urine Urobilinogen 0.2 (NORMAL) Ur Leukocyte Esterase NEGATIVE Ur Microscopic Review NOT INDICATED Urine Culture Comments NOT INDICATED Salicylates Urine Opiates Screen NEGATIVE Ur Oxycodone Screen POSITIVE H Urine Methadone Screen NEGATIVE Ur Propoxyphene Screen NEGATIVE Acetaminophen Ur Barbiturates Screen NEGATIVE Ur Tricyclics Screen NEGATIVE Ur Phencyclidine Scrn NEGATIVE Ur Amphetamine Screen NEGATIVE U Methamphetamines Scrn NEGATIVE U Benzodiazepines Scrn NEGATIVE Urine Cocaine Screen NEGATIVE U Cannabinoids Screen NEGATIVE Ethyl Alcohol PD Medical Decision Making - ED course ED course: Patient presenting for evaluation in the setting of alcohol intoxication and possible brief unresponsive episode. Clinically here she has no focal deficits. Her speech is consistent with recent alcohol use. Labs are reviewed and notable for elevated EtOH level. A head CT was obtained given unclear history and is negative for any intracranial bleed. Patient still is clinically intoxicated in appearance. She will require further monitoring until she is clinically sober. Her is at the bedside. He was not home with her and is not able to provide any further history. Departure - Departure Clinical Impression: Alcohol intoxication Condition: Stable Instructions: ED Alcohol Intoxication Comments: You were found to have an elevated level of alcohol in your system. This can cause you to be impaired and affect your judgment. I would recommend Trying to abstain from alcohol or substance abuse. I recommend follow-up with your primary care doctor. Return to the ER with any worsening symptoms such as thoughts of hurting yourself or with any concerns.
--- NOTE | 2022-12-16 19:58 | ED Physician Documentation ---
ED Addendum - Addendum Addendum: 12/16/22 19:57 Patient is awake, alert, and oriented x3. She was allowed to sober in the emergency department. Counseled not to mix narcotics and alcohol. Patient is not suicidal. Family is comfortable coming to get the patient. Patient counseled regarding signs and symptoms for which I believe and urgent re- evaluation would be necessary. Patient with good understanding of and agreement to plan and is comfortable going home at this time This document was made in part using voice recognition software. While efforts are made to proofread this document, sound alike and grammatical errors may occur. Departure - Departure Disposition: 01 Home, Self Care Clinical Impression: Alcohol intoxication Qualifiers: Complication of substance-induced condition: uncomplicated Qualified Code(s): F10.920 - Alcohol use, unspecified with intoxication, uncomplicated Condition: Stable Instructions: ED Alcohol Intoxication Follow-Up: your,doctor in 1 week [Other] Comments: You were found to have an elevated level of alcohol in your system. This can cause you to be impaired and affect your judgment. I would recommend Trying to abstain from alcohol or substance abuse. I recommend follow-up with your primary care doctor. Return to the ER with any worsening symptoms such as thoughts of hurting yourself or with any concerns.
[2022-12-16 20:17] VITALS: BP 128/82
[2022-12-16] MEDS ORDERED: iohexoL-300 100 ML VIAL IVP ONE (20:53)
== END 2022-12-16 20:25 | disposition home or self-care (01) ==
LOC: EDUNIT# → ED 15:14
DX: F10.129 Alcohol abuse with intoxication, unspecified (principal); Y90.6 Blood alcohol level of 120-199 mg/100 ml; I10 Essential (primary) hypertension; Z79.899 Other long term (current) drug therapy
CPT/HCPCS: 36415; 70450; 80053; 80306; 80307; 81003; 83690; 84443; 85025; 99284; G0480; 80320; 80329; 81001; 87086

== ENCOUNTER 2023-01-24 06:39 | Outpatient (CLI) | payer MEDICARE, OTHER | END 2023-01-24 06:40 | disposition critical access hospital (66) | LOC: EMS 06:39 | DX: R11.0 Nausea (principal); R41.82 Altered mental status, unspecified; L50.9 Urticaria, unspecified; R00.0 Tachycardia, unspecified; F10.10 Alcohol abuse, uncomplicated | CPT/HCPCS: A0425; A0427 ==

== ENCOUNTER 2023-01-24 07:10 | Emergency (ER) | payer MEDICARE, OTHER ==
[2023-01-24 07:42] LABS: BASOPHILS # (AUTO) 0.1 10^3/uL (0.0-0.1); BASOPHILS % (AUTO) 1.1 %; EOSINOPHILS % (AUTO) 0.4 %; HCT - HEMATOCRIT 45.3 % (37.0-47.0); HGB - HEMOGLOBIN 15.5 g/dL (12.0-16.0); LYMPHOCYTES # (AUTO) 2.2 10^3/uL (1.5-3.5); MEAN CORPUSCULAR HEMOGLOBIN 28.4 pg (27.0-31.0); MEAN CORPUSCULAR HGB CONC 34.2 g/dL (32.0-36.0); MEAN PLATELET VOLUME 9.5 fL (7.9-10.8); MONOCYTES # (AUTO) 0.8 10^3/uL (0.0-1.0); NEUTROPHILS # (AUTO) 7.9 10^3/uL (1.5-6.6); NEUTROPHILS % (AUTO) 70.9 %; PLT - PLATELET COUNT 333 10^3/uL (130-450); RED BLOOD COUNT 5.46 10^6/uL (4.20-5.40); RED CELL DISTRIBUTION WIDTH 17.1 % (12.0-15.0); WHITE BLOOD COUNT 11.1 x10^3/uL (4.8-10.8)
[2023-01-24 07:50] LABS: MUDS CUTOFF CONCENTRATIONS CUTOFF CONC BELOW:
[2023-01-24 07:50] LABS: ALBUMIN 4.3 g/dL (3.2-5.5); ALBUMIN/GLOBULIN RATIO 1.3 (1.0-2.2); ALKALINE PHOSPHATASE 86 IU/L (42-121); ALT ALANINE AMINOTRANSFERASE 23 IU/L (10-60); AST ASPARTATE AMINOTRANSFERASE 31 IU/L (10-42); BILIRUBIN,TOTAL 1.4 mg/dL (0.2-1.0); BUN - BLOOD UREA NITROGEN 8 mg/dL (6-20); CALCIUM 8.3 mg/dL (8.5-10.3); CARBON DIOXIDE - CO2 19 mmol/L (21-32); CHLORIDE 103 mmol/L (101-111); CREATININE 0.8 mg/dL (0.4-1.0); ETOH - ETHANOL < 5.0 mg/dL; GFR - MDRD 71 (>89); GLUCOSE 125 mg/dL (70-100); LIPASE 34 U/L (22-51); MAGNESIUM 1.6 mg/dL (1.7-2.8); PHOSPHORUS 3.3 mg/dL (2.5-4.6); POTASSIUM 3.3 mmol/L (3.5-5.0); SODIUM 137 mmol/L (135-145); TOTAL PROTEIN 7.6 g/dL (6.7-8.2)
[2023-01-24] MEDS ORDERED: PROMETHAZINE INJ 25 MG in SODIUM CHLORIDE 0.9% 50 ML IV STA (07:51)
[2023-01-24] MEDS ORDERED: PANTOPRAZOLE 40 MG VIAL IVP STA (07:52)
[2023-01-24] MEDS ORDERED: SODIUM CHLORIDE 0.9% 1,000 ML IV STA ×3 (07:52)
[2023-01-24] MEDS ORDERED: MAGNESIUM SULFATE 2 GRAM 2 GM/50 ML BAG IV ONE (07:52)
[2023-01-24 07:53] LABS: GLUCOSE, URINE (UA) NEGATIVE (NEGATIVE); KETONES,URINE (UA) 40 mg/dL (NEGATIVE); LEUKOCYTE ESTERASE, URINE NEGATIVE (NEGATIVE); NITRITE,URINE NEGATIVE (NEGATIVE); OCCULT BLOOD,URINE SMALL (NEGATIVE); PROTEIN,URINE 100 mg/dL (NEGATIVE); UROBILINOGEN,URINE 0.2 (NORMAL) E.U./dL (NORMAL)
--- NOTE | 2023-01-24 07:57 | ED Physician Documentation ---
History of Present Illness - Stated complaint Stated Complaint: HBD/N/V - Chief complaint Chief Complaint: General - History obtained from History obtained from: Patient, EMS - History of Present Illness Timing: Last night Pain level max: 3 Pain level now: 2 - Additonal information Additional information: Patient is a 68-year-old female who presents to the emergency department stating that she drank heavily last night. She states that she was drinking fireball. Today she is having nausea, vomiting and epigastric abdominal pain. Had diarrhea this morning as well. No fevers. No chills. No hematemesis. No history of varices. 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 - Present Medications Home Medications: Ambulatory Orders Medication Instructions Recorded Confirmed Alprazolam [Alprazolam Odt] 0.5 mg PO DAILY PRN 10/21/13 01/24/23 Alendronate [Fosamax] 70 mg PO .EVERY 7 DAYS 01/24/23 01/24/23 Apixaban [Eliquis] 5 mg PO BID 01/24/23 01/24/23 Duloxetine HCl [Cymbalta] 60 mg PO DAILY 01/24/23 01/24/23 Gabapentin [Neurontin] 300 mg PO BID 01/24/23 01/24/23 Gabapentin [Neurontin] 900 mg PO HS 01/24/23 01/24/23 Latanoprost 0.005% Ophth Drops 1 drops OPTH QPM 01/24/23 01/24/23 [Xalatan Ophth Drops] Potassium Chloride 20 meq PO BID 01/24/23 01/24/23 Zolpidem [Ambien] 5 mg PO HS 01/24/23 01/24/23 - Allergies Allergies/Adverse Reactions: Allergies Allergy/AdvReac Type Severity Reaction Status Date / Time ondansetron Allergy Hives Verified 01/24/23 07:27 - Social History Does the pt smoke?: No Smoking Status: Never smoker Does the pt drink ETOH?: Yes Does the pt have substance abuse?: No - Immunizations Immunizations are current?: Yes - POLST Patient has POLST: No PD ED PE NORMAL - Vitals Vital signs reviewed: Yes - General General: Alert and oriented X 3, No acute distress - HEENT HEENT: PERRL, Moist mucous membranes - Neck Neck: Supple, no meningeal sign - Cardiac Cardiac: RRR, Strong equal pulses - Respiratory Respiratory: No respiratory distress, Clear bilaterally - Abdomen Abdomen: Soft, Non tender, Non distended - Back Back: No CVA TTP, No spinal TTP - Derm Derm: Warm and dry - Extremities Extremities: No edema, No calf tenderness / cord - Neuro Neuro: Alert and oriented X 3 - Psych Psych: Normal mood, Normal affect Results - Vitals Vitals: Vital Signs - 24 hr 01/24/23 01/24/23 01/24/23 07:22 07:52 08:35 Temperature 36.3 C L Heart Rate 115 H 118 H 105 H Respiratory 24 20 15 Rate Blood Pressure 151/99 H 141/83 H O2 Saturation 100 100 100 01/24/23 01/24/23 10:00 12:07 Temperature Heart Rate 106 H 102 H Respiratory 20 20 Rate Blood Pressure 153/83 H 156/89 H O2 Saturation 100 100 Oxygen O2 Source Room air - Labs Labs: Laboratory Tests 01/24/23 01/24/23 01/24/23 07:28 07:28 07:40 WBC 11.1 H RBC 5.46 H Hgb 15.5 Hct 45.3 MCV 83.0 MCH 28.4 MCHC 34.2 RDW 17.1 H Plt Count 333 MPV 9.5 Neut # (Auto) 7.9 H Lymph # (Auto) 2.2 [place] # (Auto) 0.8 Eos # (Auto) 0.0 Baso # (Auto) 0.1 Absolute Nucleated RBC 0.00 Nucleated RBC % 0.0 Sodium 137 Potassium 3.3 L Chloride 103 Carbon Dioxide 19 L Anion Gap 15.0 H BUN 8 Creatinine 0.8 Estimated GFR (MDRD) 71 L Glucose 125 H Calcium 8.3 L Phosphorus 3.3 Magnesium 1.6 L Total Bilirubin 1.4 H AST 31 ALT 23 Alkaline Phosphatase 86 Total Protein 7.6 Albumin 4.3 Globulin 3.3 Albumin/Globulin Ratio 1.3 Lipase 34 Urine Color YELLOW Urine Clarity HAZY Urine pH 7.0 Ur Specific [place] 1.025 Urine Protein 100 H Urine Glucose (UA) NEGATIVE Urine Ketones 40 H Urine Occult Blood SMALL H Urine Nitrite NEGATIVE Urine Bilirubin NEGATIVE Urine Urobilinogen 0.2 (NORMAL) Ur Leukocyte Esterase NEGATIVE Urine RBC 0-5 Urine WBC 4-5 Ur Squamous Epith Cells RARE Squamous Urine Bacteria Few Urine Mucus Few Strands Ur Microscopic Review INDICATED Urine Culture Comments NOT INDICATED Urine Opiates Screen NEGATIVE Ur Oxycodone Screen POSITIVE H Urine Methadone Screen NEGATIVE Ur Propoxyphene Screen NEGATIVE Ur Barbiturates Screen NEGATIVE Ur Tricyclics Screen NEGATIVE Ur Phencyclidine Scrn NEGATIVE Ur Amphetamine Screen NEGATIVE U Methamphetamines Scrn NEGATIVE U Benzodiazepines Scrn POSITIVE H Urine Cocaine Screen NEGATIVE U Cannabinoids Screen NEGATIVE Ethyl Alcohol < 5.0 - Rads (name of study) head CT Relevant Findings:: Final report received, See rad report PD Medical Decision Making - ED course Complexity details: reviewed results, re-evaluated patient, considered differential, d/w patient ED course: 68-year-old female presents the emergency department with nausea and vomiting today. She states that she was drinking alcohol last night and does not remember most of the night. No acute findings on head CT. Her white blood cell count is minimally elevated. CBC otherwise normal. ER abdominal panel has a mildly elevated anion gap and mildly low carbon dioxide level. Magnesium is low as well. She was given 2 g of mag IV. She was given IV fluids. Urinalysis consistent with dehydration. She was given IV Phenergan and nausea resolved. Tolerating p.o. without difficulty. Urine toxicology screen positive for oxycodone and benzodiazepines. Ethyl alcohol is negative. She states that she does occasionally take oxycodone and Ativan. Patient felt much better after a dose of IV Ativan here. Patient is requesting to go home at this time. Tolerating p.o. without difficulty. We did discuss detox and rehab, patient does not want to go to either of these at this time. Information was still given to the patient. Patient counseled regarding signs and symptoms for which I believe and urgent re-evaluation would be necessary. Patient with good understanding of and agreement to plan and is comfortable going home at this time This document was made in part using voice recognition software. While efforts are made to proofread this document, sound alike and grammatical errors may occur. Departure - Departure Disposition: 01 Home, Self Care Clinical Impression: Dehydration Vomiting Qualifiers: Vomiting type: unspecified Nausea presence: with nausea Qualified Code(s): R11.2 - Nausea with vomiting, unspecified Condition: Good Instructions: ED Nausea Vomiting Follow-Up: your,doctor in 1 week [Other] Comments: Please follow-up with your doctor for further care. Make sure you are drinking plenty of water. If you would like help with your drinking, you can talk to [facility] which is a detox/stabilization facility in [place]. Contact: [facility] [address] [place] [address] Fax: Discharge Date/Time: 01/24/23 12:08
[2023-01-24 08:05] LABS: BILIRUBIN,URINE NEGATIVE (NEGATIVE); CLARITY,URINE HAZY (CLEAR); ICTOTEST,URINE NEGATIVE
[2023-01-24 08:06] LABS: AMPHETAMINE SCREEN,URINE NEGATIVE (NEGATIVE); BACTERIA,URINE Few /HPF (None Seen); BARBITURATE SCREEN,UR NEGATIVE (NEGATIVE); BENZODIAZEPINES SCREEN, URINE POSITIVE (NEGATIVE); COCAINE SCREEN URINE NEGATIVE (NEGATIVE); METHADONE SCREEN, URINE NEGATIVE (NEGATIVE); METHAMPHETAMINES SCREEN, URINE NEGATIVE (NEGATIVE); MUCUS,URINE Few Strands; OPIATE SCREEN, URINE NEGATIVE (NEGATIVE); OXYCODONE SCREEN, URINE POSITIVE (NEGATIVE); PROPOXYPHENE SCREEN, URINE NEGATIVE (NEGATIVE); RBC,URINE 0-5 /HPF (0-5); SQUAMOUS EPITHELIAL CELL,UR RARE Squamous (<= Few); THC CANNABINOID SCREEN, URINE NEGATIVE (NEGATIVE); TRICYCLIC ANTIDEPRESSANT,URINE NEGATIVE (NEGATIVE)
--- NOTE | 2023-01-24 09:10 | CT Report ---
PROCEDURE: HEAD WO INDICATIONS: altered vomiting, fall, TECHNIQUE: Noncontrast 4.5 mm thick angled axial sections acquired from the foramen magnum to the vertex. For r adiation dose reduction, the following was used: automated exposure control, adjustment of mA and/or kV according to patient size. COMPARISON: None. FINDINGS: Image quality: Excellent. CSF spaces: Basal cisterns are patent. No extra-axial fluid collections. Ventricles are normal in size and shape. Brain: No midline shift. No intracranial masses or hemorrhage. Reich-white matter interface is norm al. Age-related volume loss and mild small vessel ischemic change. Skull and face: Calvarium and visualized facial bones are intact, without suspicious lesions. Prost hetic left globe. Sinuses: Visualized sinuses and mastoids are clear. IMPRESSION: No acute intracranial pathology Reviewed by: Magnus Brantley MD on 01/24/2023 9:09 AM PDT Approved by: Magnus Brantley MD on 01/24/2023 9:09 AM PDT Station ID: [id number]
[2023-01-24] MEDS ORDERED: LORazepam 2 MG/ML VIAL IVP STA (09:40)
[2023-01-24 12:08] VITALS: BP 156/89
== END 2023-01-24 12:08 | disposition home or self-care (01) ==
LOC: EDBD → EDUNIT# → ED 07:10
DX: E86.0 Dehydration (principal); R11.2 Nausea with vomiting, unspecified; I10 Essential (primary) hypertension; Z79.01 Long term (current) use of anticoagulants; Z79.899 Other long term (current) drug therapy
CPT/HCPCS: 36415; 70450; 80053; 80306; 81001; 83690; 83735; 84100; 85025; 96361; 96365; 96368; 96375; 99284; G0480; J2060; J7040; 80320; 81003; 87086

== ENCOUNTER 2023-02-04 14:00 | Outpatient (CLI) | payer MEDICARE, OTHER ==
--- NOTE | 2023-02-05 10:02 | Mammography Report ---
BILATERAL DIGITAL SCREENING MAMMOGRAM 3D/2D: 02/04/2023 CLINICAL: Routine screening. Comparison is made to exams dated: 01/13/2019 mammogram, 12/03/2017 mammogram, and 11/01/2016 mammogram - [facility]. There are scattered areas of fibroglandular density in both breasts (category b / 25%-50% glandular t issue). No significant masses, calcifications, or other findings are seen in either breast. There has been no significant interval change. IMPRESSION: NEGATIVE There is no mammographic evidence of malignancy. A 1 year screening mammogram is recommended. Based on the Tyrer Cuzick model (a risk assessment model) the patients lifetime risk is 3.8% and her 10 year risk is 2.2%. According to the ACR, ACS, and NCCN guidelines, an annual breast MRI exam carol g with mammogram is recommended if the patients lifetime risk is 20% or greater. This exam was interpreted at Station ID: [id number]. NOTE: For mammograms, a report in lay terms will be sent to the patient. Approximately 15% of breast malignancies will not be visualized mammographically. In the management of a palpable breast mass, a negative mammogram must not discourage biopsy of a clinically suspicious lesion. Electronically Signed By: Kayode dan/dionne:02/04/2023 19:49:11 letter sent: No_Letter ACR BI-RADS Category 1: Negative 3341F PARENCHYMAL PATTERN: (A) - The breast(s) demonstrate(s) scattered fibroglandular densities. BI-RADS CATEGORY: (1) - 1 Mammogram 20240205 1 year screening LATERALITY: (B)
== END 2023-02-04 14:01 | disposition home or self-care (01) ==
LOC: DI.S 14:00
DX: Z12.31 Encounter for screening mammogram for malignant neoplasm of breast (principal)

== ENCOUNTER 2023-04-04 02:46 | Outpatient (CLI) | payer MEDICARE, OTHER | END 2023-04-04 03:15 | disposition critical access hospital (66) | LOC: EMS 02:46 | DX: R40.0 Somnolence (principal); F10.129 Alcohol abuse with intoxication, unspecified | CPT/HCPCS: A0425; A0429 ==

== ENCOUNTER 2023-04-04 03:10 | Emergency (ER) | payer MEDICARE, OTHER ==
[2023-04-04] MEDS ORDERED: SODIUM CHLORIDE 0.9% 1,000 ML IV STA (03:21)
--- NOTE | 2023-04-04 03:23 | ED Physician Documentation ---
History of Present Illness - Stated complaint Stated Complaint: AMS, ETOH, ETC... - History obtained from History obtained from: Patient, EMS - Additonal information Additional information: 68yF with pmh etoh abuse, prior accidental overdose requiring narcan, presents bibems due to concern by daughter and she may be suffering from respiratory depression 2/2 etoh and nyquil. patient herself is AOX3 but intoxicated and has no complaints. denies other drug use. ems reports she had soft BP on scene responsive to IVF. 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 - Present Medications Home Medications: Ambulatory Orders Medication Instructions Recorded Confirmed Alprazolam [Alprazolam Odt] 0.5 mg PO DAILY PRN 10/21/13 01/24/23 Alendronate [Fosamax] 70 mg PO .EVERY 7 DAYS 01/24/23 01/24/23 Apixaban [Eliquis] 5 mg PO BID 01/24/23 01/24/23 Duloxetine HCl [Cymbalta] 60 mg PO DAILY 01/24/23 01/24/23 Gabapentin [Neurontin] 300 mg PO BID 01/24/23 01/24/23 Gabapentin [Neurontin] 900 mg PO HS 01/24/23 01/24/23 Latanoprost 0.005% Ophth Drops 1 drops OPTH QPM 01/24/23 01/24/23 [Xalatan Ophth Drops] Potassium Chloride 20 meq PO BID 01/24/23 01/24/23 Zolpidem [Ambien] 5 mg PO HS 01/24/23 01/24/23 - Allergies Allergies/Adverse Reactions: Allergies Allergy/AdvReac Type Severity Reaction Status Date / Time ondansetron Allergy Hives Verified 01/24/23 07:27 - Social History Does the pt smoke?: No Smoking Status: Never smoker Does the pt drink ETOH?: Yes Does the pt have substance abuse?: No - Immunizations Immunizations are current?: Yes - POLST Patient has POLST: No PD ED PE NORMAL - Vitals Vital signs reviewed: Yes - General General: Alert and oriented X 3, No acute distress, Well developed/nourished - HEENT HEENT: Atraumatic, PERRL, EOMI - Neck Neck: Supple, no meningeal sign - Cardiac Cardiac: RRR - Respiratory Respiratory: No respiratory distress, Clear bilaterally - Abdomen Abdomen: Non tender, Non distended - Derm Derm: Normal color, Warm and dry Results - Vitals Vitals: Vital Signs - 24 hr 04/04/23 04/04/23 04/04/23 03:24 04:00 06:00 Temperature 35.9 C L Heart Rate 98 91 83 Respiratory 27 H 15 14 Rate Blood Pressure 90/87 H 125/76 108/66 O2 Saturation 97 93 96 Oxygen O2 Source Room air - Labs Labs: Laboratory Tests 04/04/23 04/04/23 04:08 04:08 WBC 5.3 RBC 3.74 L Hgb 11.0 L Hct 33.9 L MCV 90.6 MCH 29.4 MCHC 32.4 RDW 13.9 Plt Count 275 MPV 10.1 Neut # (Auto) 2.3 Lymph # (Auto) 2.3 [place] # (Auto) 0.4 Eos # (Auto) 0.2 Baso # (Auto) 0.1 Absolute Nucleated RBC 0.00 Nucleated RBC % 0.0 Sodium 144 Potassium 2.9 L Chloride 111 Carbon Dioxide 27 Anion Gap 6.0 BUN 6 Creatinine 0.7 Estimated GFR (MDRD) 83 L Glucose 114 H Calcium 8.1 L Total Bilirubin < 0.2 L AST 25 ALT 21 Alkaline Phosphatase 55 Total Protein 6.0 L Albumin 3.3 Globulin 2.7 Albumin/Globulin Ratio 1.2 Lipase 33 Salicylates < 6.0 Acetaminophen < 10 L Ethyl Alcohol 284.2 PD Medical Decision Making - ED course ED course: 68yF presents to the ED intoxicated with alcohol and nyquil. Plan to obtain tox labs, monitor and reevaluate. Labwork significant for new anemia hb 11 down from 15.6 this year. She will need to f/u with pcp to have this worked up further. Likely will need to endorse to my incoming daytime ED MD at 7am shift change pending sobriety. Departure - Departure Clinical Impression: Alcohol abuse, Anemia Condition: Stable Instructions: Anemia, Alcoholism Get Help
[2023-04-04 04:30] LABS: BASOPHILS # (AUTO) 0.1 10^3/uL (0.0-0.1); BASOPHILS % (AUTO) 1.3 %; EOSINOPHILS # (AUTO) 0.2 10^3/uL (0.0-0.7); EOSINOPHILS % (AUTO) 4.4 %; HCT - HEMATOCRIT 33.9 % (37.0-47.0); LYMPHOCYTES # (AUTO) 2.3 10^3/uL (1.5-3.5); LYMPHOCYTES % (AUTO) 43.3 %; MEAN CORPUSCULAR HEMOGLOBIN 29.4 pg (27.0-31.0); MEAN CORPUSCULAR HGB CONC 32.4 g/dL (32.0-36.0); MEAN CORPUSCULAR VOLUME 90.6 fL (81.0-99.0); MEAN PLATELET VOLUME 10.1 fL (7.9-10.8); MONOCYTES # (AUTO) 0.4 10^3/uL (0.0-1.0); NEUTROPHILS # (AUTO) 2.3 10^3/uL (1.5-6.6); NEUTROPHILS % (AUTO) 42.6 %; PLT - PLATELET COUNT 275 10^3/uL (130-450); RED BLOOD COUNT 3.74 10^6/uL (4.20-5.40); RED CELL DISTRIBUTION WIDTH 13.9 % (12.0-15.0); WHITE BLOOD COUNT 5.3 x10^3/uL (4.8-10.8)
[2023-04-04 04:50] LABS: ACETAMINOPHEN < 10 ug/mL (10-30); ALBUMIN 3.3 g/dL (3.2-5.5); ALBUMIN/GLOBULIN RATIO 1.2 (1.0-2.2); ALKALINE PHOSPHATASE 55 IU/L (42-121); ALT ALANINE AMINOTRANSFERASE 21 IU/L (10-60); AST ASPARTATE AMINOTRANSFERASE 25 IU/L (10-42); BILIRUBIN,TOTAL < 0.2 mg/dL (0.2-1.0); BUN - BLOOD UREA NITROGEN 6 mg/dL (6-20); CALCIUM 8.1 mg/dL (8.5-10.3); CARBON DIOXIDE - CO2 27 mmol/L (21-32); CHLORIDE 111 mmol/L (101-111); CREATININE 0.7 mg/dL (0.4-1.0); ETOH - ETHANOL 284.2 mg/dL; GFR - MDRD 83 (>89); GLUCOSE 114 mg/dL (70-100); LIPASE 33 U/L (22-51); POTASSIUM 2.9 mmol/L (3.5-5.0); SALICYLATE < 6.0 mg/dL; SODIUM 144 mmol/L (135-145)
[2023-04-04 10:22] VITALS: BP 122/90
--- NOTE | 2023-04-04 10:50 | ED Physician Documentation ---
ED Addendum - Addendum Addendum: 04/04/23 10:49 Patient 68-year-old female known history of alcohol abuse disorder who presented last night with signs of acute intoxication. Reevaluated this morning at approximately 1030 hrs., found to be resting comfortably and in no acute distress. Denied suicidal or homicidal ideation. Discussed multiple life stressors that she believes led her to relapse on alcohol last night. Was offered evaluation for detox/inpatient treatment which was declined. She did request information for outpatient resources and these were provided. Will discharge with instructions to follow-up with primary care and return to the emergency department promptly for new or worsening symptoms.
== END 2023-04-04 11:32 | disposition home or self-care (01) ==
LOC: EDUNIT# → ED 03:10
DX: F10.129 Alcohol abuse with intoxication, unspecified (principal); Y90.8 Blood alcohol level of 240 mg/100 ml or more; D64.9 Anemia, unspecified; I10 Essential (primary) hypertension; Z79.899 Other long term (current) drug therapy; Z79.01 Long term (current) use of anticoagulants
CPT/HCPCS: 36415; 80053; 80307; 83690; 85025; 99283; G0480; 80306; 80320; 80329

== ENCOUNTER 2023-06-30 08:00 | Outpatient (CLI) | payer MEDICARE, OTHER ==
--- NOTE | 2023-06-30 15:49 | XRAY Report ---
PROCEDURE: Ankle 3 View RT INDICATIONS: SPRAIN OF RIGHT ANKLE TECHNIQUE: 3 views of the ankle were acquired. COMPARISON: None. FINDINGS: Bones: No fractures or dislocations. ORIF of the tibia. Healed fracture deformity of the distal tib ia and fibula. Ankle mortise is normally aligned. No suspicious bony lesions. Soft tissues: No tibiotalar joint effusion. Achilles tendon appears normal. IMPRESSION: 1. Post surgical sequelae. 2. No acute fracture. No osseous lesion. If symptoms and/or clinical suspicion for pathology continue , further assessment with repeat plain films, or advanced imaging (e.g., CT, MRI, or bone scan) is re commended for further assessment. Reviewed by: Chip Umana MD on 06/30/2023 3:48 PM PDT Approved by: Chip Umana MD on 06/30/2023 3:48 PM PDT Station ID: [id number]
--- NOTE | 2023-06-30 15:50 | XRAY Report ---
PROCEDURE: Foot 3 View RT INDICATIONS: SPRAIN OF RIGHT FOOT TECHNIQUE: 3 views of the foot were acquired. COMPARISON: None. FINDINGS: Bones: No fractures or dislocations. No suspicious bony lesions. Soft tissues: No suspicious soft tissue calcifications or masses. IMPRESSION: No acute fracture. No osseous lesion. If symptoms and/or clinical suspicion for patholog y continue, further assessment with repeat plain films, or advanced imaging (e.g., CT, MRI, or bone s can) is recommended for further assessment. Reviewed by: Chip Umana MD on 06/30/2023 3:49 PM PDT Approved by: Chip Umana MD on 06/30/2023 3:49 PM PDT Station ID: [id number]
== END 2023-06-30 23:59 | disposition home or self-care (01) ==
LOC: DI.S 08:00
PROVIDERS: ATTEND Physician Assistant Medical
DX: S93.691A Other sprain of right foot, initial encounter (principal); S93.401A Sprain of unspecified ligament of right ankle, initial encounter; S82.201D Unspecified fracture of shaft of right tibia, subsequent encounter for closed fracture with routine healing; S82.401D Unspecified fracture of shaft of right fibula, subsequent encounter for closed fracture with routine healing

== ENCOUNTER 2023-08-04 08:28 | Outpatient (CLI) | payer MEDICARE, OTHER | END 2023-08-04 08:29 | disposition home or self-care (01) | LOC: LAB.S 08:28 | PROVIDERS: ATTEND Internal Medicine | DX: Z53.9 Procedure and treatment not carried out, unspecified reason (principal) ==

== ENCOUNTER 2024-04-08 18:11 | Outpatient (CLI) | payer MEDICARE, OTHER | END 2024-04-08 23:59 | disposition critical access hospital (66) | LOC: EMS 18:11 | DX: R41.82 Altered mental status, unspecified (principal); R00.0 Tachycardia, unspecified; R14.0 Abdominal distension (gaseous); F10.90 Alcohol use, unspecified, uncomplicated; X30.XXXA Exposure to excessive natural heat, initial encounter; Y92.818 Other transport vehicle as the place of occurrence of the external cause | CPT/HCPCS: A0425; A0427 ==

== ENCOUNTER 2024-04-08 18:34 | Emergency (ER) | payer MEDICARE, OTHER ==
--- NOTE | 2024-04-08 18:43 | ED Physician Documentation ---
PD HPI ALTERED MENTAL STATUS - Stated complaint Stated Complaint: POSS OD - History obtained from History obtained from: Family, EMS (Medic reports the patient and found her outside in the car which was in the sun. History of alcohol use chronically. Unclear use this afternoon. She was poorly responsive and EMS was called. 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, Other (IV fluids) Review of Systems Unable to obtain: AMS PD PAST MEDICAL HISTORY - Past Medical History Cardiovascular: Hypertension Respiratory: Asthma Endocrine/Autoimmune: None GI: None MEDICAL BILL PROCESSOR: None : None HEENT: Other Psych: Anxiety Musculoskeletal: None Derm: None - Past Surgical History Past Surgical History: Yes General: Colonoscopy /MEDICAL BILL PROCESSOR: section - Present Medications Home Medications: Ambulatory Orders Medication Instructions Recorded Confirmed Alprazolam [Alprazolam Odt] 0.5 mg PO DAILY PRN 10/21/13 01/24/23 Alendronate [Fosamax] 70 mg PO .EVERY 7 DAYS 01/24/23 01/24/23 Apixaban [Eliquis] 5 mg PO BID 01/24/23 01/24/23 Duloxetine HCl [Cymbalta] 60 mg PO DAILY 01/24/23 01/24/23 Gabapentin [Neurontin] 300 mg PO BID 01/24/23 01/24/23 Gabapentin [Neurontin] 900 mg PO HS 01/24/23 01/24/23 Latanoprost 0.005% Ophth Drops 1 drops OPTH QPM 01/24/23 01/24/23 [Xalatan Ophth Drops] Potassium Chloride 20 meq PO BID 01/24/23 01/24/23 Zolpidem [Ambien] 5 mg PO HS 01/24/23 01/24/23 - Allergies Allergies/Adverse Reactions: Allergies Allergy/AdvReac Type Severity Reaction Status Date / Time ondansetron Allergy Hives Verified 04/08/24 18:58 - Social History Does the pt smoke?: No Smoking Status: Never smoker Does the pt drink ETOH?: Yes Does the pt have substance abuse?: No - Immunizations Immunizations are current?: Yes - POLST Patient has POLST: No PD ED PE NORMAL - Vitals Vital signs reviewed: Yes (rectal temp normal) - General General: Well developed/nourished. No: Alert and oriented X 3 (She opens her eyes to stimulus. Minimal verbal with just grunting in response to stimulus. 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 No: PERRL (Some disconjugate gaze but they appear to move symmetrically, presumed strabysmus.) - Neck Neck: Supple, no meningeal sign (she is moving around on her own, and turning side to side until settles into comfy position right lateral recumbent and smiles. ), No adenopathy - Cardiac Cardiac: RRR, No murmur - Respiratory Respiratory: No respiratory distress, Other (diffuse exp wheezing. ) - Abdomen Abdomen: Soft, Non tender - Derm Derm: Normal color, Warm and dry - Extremities Extremities: No edema, No calf tenderness / cord - Neuro Neuro: No motor deficit Eye Opening: To Voice Motor: Localizes to Pain Verbal: Inappropriate GCS Score: 11 Results - Vitals Vitals: Vital Signs - 24 hr 04/08/24 04/08/24 04/08/24 18:52 18:55 19:28 Temperature 36.8 C Heart Rate 92 98 87 Respiratory 9 L 14 11 L Rate Blood Pressure 116/81 H 111/60 O2 Saturation 97 99 If not protocol : Oxygen Flow, liters/minute 04/08/24 04/08/24 04/08/24 19:53 20:00 20:30 Temperature Heart Rate 114 H 97 97 Respiratory 18 18 18 Rate Blood Pressure 158/84 H O2 Saturation 98 99 98 If not protocol 5 4 4 : Oxygen Flow, liters/minute 04/08/24 04/08/24 04/08/24 21:00 21:30 22:00 Temperature Heart Rate 95 115 H 101 H Respiratory 16 18 18 Rate Blood Pressure 138/89 H O2 Saturation 97 99 97 If not protocol 2 2 : Oxygen Flow, liters/minute Oxygen O2 Source Nasal cannula - Labs Labs: Laboratory Tests 04/08/24 04/08/24 04/08/24 18:50 18:57 18:57 WBC 7.4 RBC 3.87 L Hgb 8.7 L Hct 30.5 L MCV 78.8 L MCH 22.5 L MCHC 28.5 L RDW 16.6 H Plt Count 302 MPV 9.7 Neut # (Auto) 4.5 Lymph # (Auto) 2.1 [place] # (Auto) 0.5 Eos # (Auto) 0.1 Baso # (Auto) 0.1 Absolute Nucleated RBC 0.00 Nucleated RBC % 0.0 Sodium 144 Potassium 3.5 Chloride 111 Carbon Dioxide 27 Anion Gap 6.0 BUN 7 Creatinine 0.9 Estimated GFR (MDRD) 62 L Glucose 106 H Calcium 8.6 Magnesium 2.0 Total Bilirubin 0.3 AST 68 H ALT 22 Alkaline Phosphatase 58 Total Creatine Kinase 71 Total Protein 6.1 L Albumin 3.8 Globulin 2.3 Albumin/Globulin Ratio 1.7 Lipase 20 TSH 1.11 Urine Color YELLOW Urine Clarity CLEAR Urine pH 5.5 Ur Specific [place] <=1.005 Urine Protein NEGATIVE Urine Glucose (UA) NEGATIVE Urine Ketones NEGATIVE Urine Occult Blood NEGATIVE Urine Nitrite NEGATIVE Urine Bilirubin NEGATIVE Urine Urobilinogen 0.2 (NORMAL) Ur Leukocyte Esterase NEGATIVE Ur Microscopic Review NOT INDICATED Urine Culture Comments NOT INDICATED Salicylates 2.2 Urine Opiates Screen POSITIVE H Ur Buprenorphine Scrn NEGATIVE Ur Oxycodone Screen POSITIVE H Urine Methadone Screen NEGATIVE Acetaminophen 0.1 Ur Barbiturates Screen NEGATIVE Ur Tricyclics Screen NEGATIVE Ur Phencyclidine Scrn NEGATIVE Ur Amphetamine Screen NEGATIVE U Methamphetamines Scrn NEGATIVE U Benzodiazepines Scrn NEGATIVE Urine Cocaine Screen NEGATIVE U Cannabinoids Screen NEGATIVE Ur Drug Screen Comment CUTOFF CONC BELOW: Ethyl Alcohol 360.6 PD Medical Decision Making - ED course Complexity details: reviewed results, re-evaluated patient (having adequate resp effort for saturations. Still just rousable to tactile. Care to oncoming EDMD. ), considered differential (The patient was found with altered mental status in her car out in the driveway by her . 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 Apparently an empty vodka bottle in the car. Per report from the to the medics, history of alcohol use.) - Critical Care Time(min): 50 Time Includes: Direct patient care, Reassess patient, Document care, Coordinate care Data interpretation: Labs, Pulse ox Procedures excluded from critical care time: EKG Departure - Departure Clinical Impression: Altered mental status, Alcohol intoxication, Opioid use disorder, Anemia Condition: Stable Record reviewed to determine appropriate education?: Yes
[2024-04-08] MEDS: ALBUTEROL NEB 2.5 MG/3 ML INH STA (18:53)
[2024-04-08 19:05] LABS: BILIRUBIN,URINE NEGATIVE (NEGATIVE); GLUCOSE, URINE (UA) NEGATIVE (NEGATIVE); KETONES,URINE (UA) NEGATIVE (NEGATIVE); LEUKOCYTE ESTERASE, URINE NEGATIVE (NEGATIVE); NITRITE,URINE NEGATIVE (NEGATIVE); OCCULT BLOOD,URINE NEGATIVE (NEGATIVE); PH,URINE 5.5 PH (5.0-7.5); PROTEIN,URINE NEGATIVE (NEGATIVE); UROBILINOGEN,URINE 0.2 (NORMAL) E.U./dL (NORMAL)
[2024-04-08 19:06] LABS: BASOPHILS # (AUTO) 0.1 10^3/uL (0.0-0.1); BASOPHILS % (AUTO) 1.5 %; EOSINOPHILS # (AUTO) 0.1 10^3/uL (0.0-0.7); EOSINOPHILS % (AUTO) 1.6 %; HCT - HEMATOCRIT 30.5 % (37.0-47.0); HGB - HEMOGLOBIN 8.7 g/dL (12.0-16.0); LYMPHOCYTES # (AUTO) 2.1 10^3/uL (1.5-3.5); LYMPHOCYTES % (AUTO) 28.6 %; MEAN CORPUSCULAR HEMOGLOBIN 22.5 pg (27.0-31.0); MEAN CORPUSCULAR HGB CONC 28.5 g/dL (32.0-36.0); MEAN CORPUSCULAR VOLUME 78.8 fL (81.0-99.0); MEAN PLATELET VOLUME 9.7 fL (7.9-10.8); MONOCYTES # (AUTO) 0.5 10^3/uL (0.0-1.0); MONOCYTES % (AUTO) 7.3 %; NEUTROPHILS # (AUTO) 4.5 10^3/uL (1.5-6.6); NEUTROPHILS % (AUTO) 60.9 %; PLT - PLATELET COUNT 302 10^3/uL (130-450); RED BLOOD COUNT 3.87 10^6/uL (4.20-5.40); RED CELL DISTRIBUTION WIDTH 16.6 % (12.0-15.0); WHITE BLOOD COUNT 7.4 x10^3/uL (4.8-10.8)
[2024-04-08 19:06] LABS: CLARITY,URINE CLEAR (CLEAR)
--- NOTE | 2024-04-08 19:09 | ED Physician Documentation ---
ED Addendum - Addendum Addendum: 04/08/24 19:08 Patient endorsed to me by Dr. Scherer. EKG at 18:59 showed NSR at 82 bpm with normal intervals and no acute ST or T wave changes concerning for ischemia. 04/08/24 19:26 balance staff inspector report patient was mumbling and moving all extremities when they changed her into her gown on arrival. She was intoxicated appearing. Tox screen positive for opiates/oxycodone. Patient has worsening anemia from last year with Hb 8.7. Upon my evaluation patient is significantly altered, therefore CT head was ordered to r/o central etiology for AMS. However given clinical context, intoxication with opiates and alcohol is most likely cause. 0.4 IV narcan ordered. 04/08/24 19:27 04/08/24 19:28 04/08/24 23:47 Patient now AOX2, slow to respond when asked the year. 04/08/24 23:52 d/w who will pick her up at 6am. discussed alcohol cessation and drug cessation resources and recommended ITUHA to daughter. Disposition home Condition stable Impression 1. alcohol abuse 2. opiate abuse
[2024-04-08 19:17] LABS: AMPHETAMINE SCREEN,URINE NEGATIVE (NEGATIVE); BARBITURATE SCREEN,UR NEGATIVE (NEGATIVE); BENZODIAZEPINES SCREEN, URINE NEGATIVE (NEGATIVE); BUPRENORPHINE SCREEN, URINE NEGATIVE (NEGATIVE); COCAINE SCREEN URINE NEGATIVE (NEGATIVE); METHADONE SCREEN, URINE NEGATIVE (NEGATIVE); METHAMPHETAMINES SCREEN, URINE NEGATIVE (NEGATIVE); OPIATE SCREEN, URINE POSITIVE (NEGATIVE); OXYCODONE SCREEN, URINE POSITIVE (NEGATIVE); THC CANNABINOID SCREEN, URINE NEGATIVE (NEGATIVE); TRICYCLIC ANTIDEPRESSANT,URINE NEGATIVE (NEGATIVE)
[2024-04-08 19:21] LABS: ACETAMINOPHEN 0.1 ug/mL; ALBUMIN 3.8 g/dL (3.2-5.5); ALBUMIN/GLOBULIN RATIO 1.7 (1.0-2.2); BILIRUBIN,TOTAL 0.3 mg/dL (0.2-1.0); CALCIUM 8.6 mg/dL (8.5-10.3); CREATININE 0.9 mg/dL (0.6-1.3); ETOH - ETHANOL 360.6 mg/dL; POTASSIUM 3.5 mmol/L (3.5-4.5); SALICYLATE 2.2 mg/dL; TOTAL PROTEIN 6.1 g/dL (6.4-8.9)
[2024-04-08] MEDS: SODIUM CHLORIDE 0.9% 1,000 ML IV STA (19:22)
[2024-04-08 19:32] LABS: THYROID STIMULATING HORMONE 1.11 uIU/mL (0.34-5.60)
--- NOTE | 2024-04-08 19:37 | XRAY Report ---
PROCEDURE: Chest 1V INDICATIONS: chest pain TECHNIQUE: One view of the chest was acquired. COMPARISON: 07/12/2019. FINDINGS: Surgical changes and devices: None. Lungs and pleura: No pleural effusions or pneumothorax. Low lung volumes. Lungs are clear. Mediastinum: Mediastinal contours appear normal. Heart size is normal. Bones and chest wall: No suspicious bony lesions. Overlying soft tissues appear unremarkable. IMPRESSION: No acute cardiopulmonary process. Reviewed by: Phillip Urban MD on 04/08/2024 7:36 PM PDT Approved by: Phillip Urban MD on 04/08/2024 7:36 PM PDT Station ID: [id number]
[2024-04-08] MEDS: NALOXONE 0.4 MG/ML VIAL IVP STA (19:48)
--- NOTE | 2024-04-08 21:26 | CT Report ---
PROCEDURE: Head WO INDICATIONS: ams, possible etoh TECHNIQUE: Noncontrast 4.5 mm thick angled axial sections acquired from the foramen magnum to the vertex. For r adiation dose reduction, the following was used: automated exposure control, adjustment of mA and/or kV according to patient size. COMPARISON: 01/24/2023 FINDINGS: Image quality: Diagnostic. CSF spaces: Basal cisterns are patent. No extra-axial fluid collections. Ventricles are normal in size and shape. Brain: No midline shift. No intracranial masses or hemorrhage. No mass effect. Reich-white matter i nterface is normal. There cerebral volume loss for age with resultant ventricular and sulcal prominen ce. There are periventricular and deep white matter chronic small vessel ischemic changes. Atheroscle rotic calcifications are noted in the intracranial segments of the bilateral internal carotid arterie s. Skull and face: Calvarium and visualized facial bones are intact, without suspicious lesions. Sinuses: Visualized sinuses and mastoids are clear. IMPRESSION: No acute intracranial pathology. Stable age-related senescent changes and sequela of chronic small vessel ischemic disease. Reviewed by: Eduard Ramos MD on 04/08/2024 9:25 PM PDT Approved by: Eduard Ramos MD on 04/08/2024 9:25 PM PDT Station ID: [id number]
[2024-04-08 22:33] LABS: IRON < 10 ug/dL (50-212); TOTAL IRON BINDING CAPACITY 557 ug/dL (250-450); TRANSFERRIN 398 mg/dL (203-362)
[2024-04-09] MEDS: IPRATROPIUM/ALBUTEROL 3 ML NEB INH STA (00:30)
[2024-04-09] MEDS ORDERED: THIAMINE 100 MG/1 ML 2 ML MDV ONE (00:55)
[2024-04-09] MEDS: THIAMINE INJ 200 MG in SODIUM CHLORIDE 0.9% 50 ML IV STA (00:58)
[2024-04-09] MEDS: LORazepam 2 MG/ML VIAL IVP STA (00:58)
[2024-04-09] MEDS: THIAMINE 100 MG TABLET PO STA (01:14)
[2024-04-09 06:10] VITALS: BP 120/67
[2024-04-09] MEDS ORDERED: BENZONATATE 100 MG CAPSULE PO ONE (06:10)
[2024-04-09] MEDS: BENZONATATE 100 MG CAPSULE PO STA (06:12)
[2024-04-09 06:20] VITALS: O2SAT 98
== END 2024-04-09 06:13 | disposition home or self-care (01) ==
LOC: EDUNIT# → ED 18:34
DX: R41.82 Altered mental status, unspecified (principal); F10.129 Alcohol abuse with intoxication, unspecified; F11.10 Opioid abuse, uncomplicated; D64.9 Anemia, unspecified; I10 Essential (primary) hypertension; J45.909 Unspecified asthma, uncomplicated; Z79.01 Long term (current) use of anticoagulants; Z79.899 Other long term (current) drug therapy
CPT/HCPCS: 36415; 51701; 70450; 71045; 80053; 80143; 80306; 81003; 82550; 83540; 83690; 83735; 84443; 84466; 85025; 93005; 94640; 96361; 96365; 96366; 96375; 99291; A9270; G0480; J2060; J3411; J7040; 80179; 81001; 82077; 87086

== ENCOUNTER 2024-05-18 10:06 | Outpatient (CLI) | payer MEDICARE, OTHER ==
--- NOTE | 2024-05-19 10:47 | Mammography Report ---
BILATERAL DIGITAL SCREENING MAMMOGRAM 3D/2D: 05/18/2024 CLINICAL: Routine screening. Comparison is made to exams dated: 02/04/2023 mammogram - [facility], 01/13/2019 [facility], and 12/03/2017 mammogram - [facility]. There are scattered areas of fibroglandular density in both breasts (category b / 25%-50% glandular t issue). No significant masses, calcifications, or other findings are seen in either breast. There has been no significant interval change. IMPRESSION: NEGATIVE There is no mammographic evidence of malignancy. A 1 year screening mammogram is recommended. Based on the Tyrer Cuzick model (a risk assessment model) the patient's lifetime risk is 3.6% and her 10 year risk is 2.3%. According to the ACR, ACS, and NCCN guidelines, an annual breast MRI exam carol g with mammogram is recommended if the patient's lifetime risk is 20% or greater. This exam was interpreted at Station ID: [id number]. NOTE: For mammograms, a report in lay terms will be sent to the patient. Approximately 15% of breast malignancies will not be visualized mammographically. In the management of a palpable breast mass, a negative mammogram must not discourage biopsy of a clinically suspicious lesion. Electronically Signed By: Sofia covington/dionne:05/18/2024 12:18:49 letter sent: No_Letter ACR BI-RADS Category 1: Negative 3341F PARENCHYMAL PATTERN: (A) - The breast(s) demonstrate(s) scattered fibroglandular densities. BI-RADS CATEGORY: (1) - 1 RECOMMENDATION: (ANNUAL) - Recommend routine annual screening mammography. [id number] 1 year screening LATERALITY: (B)
== END 2024-05-18 10:07 | disposition home or self-care (01) ==
LOC: DI.S 10:06
DX: Z12.31 Encounter for screening mammogram for malignant neoplasm of breast (principal); R92.323 Mammographic fibroglandular density, bilateral breasts